=== PATIENT | male | born 1960 ===

== ENCOUNTER 2017-12-16 08:56 | Inpatient (IN) | payer BC ==
[2017-12-16 08:56] VITALS: BMI 25.7
[2017-12-16 10:31] LABS: BASO % 0.5 % (0.0-2.0); EOS # 0.1 K/uL (0.0-0.7); EOS % 0.7 % (0.0-4.0); HEMOGLOBIN 10.7 g/dL (12.0-18.0); LYMPH % 11.1 % (20.0-40.0); MEAN CELL VOLUME 77.5 fL (80.0-94.0); MEAN CORPUSCULAR HEMOGLOBIN 25.7 pg (27.0-31.0); MEAN CORPUSCULAR HGB CONC 33.2 g/dL (33.0-37.0); MONO # 0.6 K/uL (0.0-0.8); MONO % 7.1 % (0.0-10.0); NEUT # 6.9 K/uL (1.8-7.0); NEUT % 80.6 % (50.0-75.0); RBC 4.16 Mil/uL (4.40-5.90); RED CELL DISTRIBUTION WIDTH 13.6 % (11.5-14.5); WHITE BLOOD COUNT 8.6 K/uL (4.8-10.8)
[2017-12-16 10:49] LABS: INR 1.2
[2017-12-16 11:04] LABS: ALB/GLOB RATIO 0.9 (1.0-2.1); ALBUMIN 3.6 g/dL (3.5-5.0); CALCIUM 9.2 mg/dl (8.6-10.4)
--- NOTE | 2017-12-16 12:09 | CP.PCM.CON ---
History of Present Illness - History of Present Illness History of Present Illness: Podiatry consult note for attending Dr. Johnson 57 y/o male with PMHX of Diabetes Type II, Hypertension, and Charcot arthropathy presents to the ED for ulceration to right great toe. Patient states he saw Dr. Johnson on Monday12/18/17. Patient was asked to come to the ED at that time. Patient reports he could not come until today due to work obligations. Patient states he visits Dr. Johnson at her office every 2 months. Patient complains of minimal pain to the area. Patient reports history of Patient states he does not keep the wound dressed. Patient ambulated in a regular shoe. Patient reports the ulcer has been present for many months however unable to obtain appropriate time frame as patient poor historian. Patient has history of diabetic Charcot arthropathy to the left foot, however patient denies any compaints to that foot at this time. Patient denies F/N/V/SOB /posterior calf pain PMHx: Diabetes Type II Social Hx: patient denies ETOH, or tobacco use Allergies: NKDA Review of Systems - Review of Systems All systems: reviewed and no additional remarkable complaints except Review of Systems: As per HPI Past Patient History - Infectious Disease Hx of Infectious Diseases: None - Tetanus Immunizations Tetanus Immunization: Unknown - Past Medical History & Family History Past Medical History?: Yes - Past Social History Smoking Status: Never Smoked - CARDIAC Hx Cardiac Disorders: No - PULMONARY Hx Respiratory Disorders: No - NEUROLOGICAL Hx Neurological Disorder: Yes Other/Comment: NUMBENESS FEET - HEENT Hx HEENT Problems: No - RENAL Hx Chronic Kidney Disease: No - ENDOCRINE/METABOLIC Hx Diabetes Mellitus Type 2: Yes - HEMATOLOGICAL/ONCOLOGICAL Hx Blood Disorders: No - INTEGUMENTARY Hx Dermatological Problems: No - MUSCULOSKELETAL/RHEUMATOLOGICAL Hx Musculoskeletal Disorders: No - GASTROINTESTINAL Hx Gastrointestinal Disorders: No - GENITOURINARY/GYNECOLOGICAL Hx Genitourinary Disorders: No - PSYCHIATRIC Hx Psychophysiologic Disorder: No Hx Substance Use: No - SURGICAL HISTORY Hx Surgeries: Yes Hx Amputation: Yes Other/Comment: SX FOR FLUID IN LUNG 1999 IN [facility] - ANESTHESIA Hx Anesthesia: Yes Hx Anesthesia Reactions: No Hx Malignant Hyperthermia: No Meds Allergies/Adverse Reactions: Allergies Allergy/AdvReac Type Severity Reaction Status Date / Time No Known Allergies Allergy Verified 12/16/17 09:09 Physical Exam - Constitutional Appears: Well, Non-toxic, No Acute Distress - Head Exam Head Exam: ATRAUMATIC, NORMOCEPHALIC - Extremities Exam Additional comments: Right Lower Extremity Exam VASC: DP and PT 2/4, TG warm to warm, with increased warmth at the right hallux , CFT less than 3 seconds to all digit on right X 4, unable to assess to the right hallux, non-pitting edema noted to the right hallux from the level of the MTPJ NEURO: epicritic and protective sensation diminished DERM: 3.3 cm X 3.1 cm X 1 cm ulceration at the tip of the right hallux, positive minimal sero-sanguinous drainage, positive for probe to bone, positive malodor, positive undermining, positive tracking dorsally, periwound granular rim with hyperkeratotic skin noted, positive maceration that extends dorso- medially, hallucal nail bed dystrophic due to ulceration MSK: minimal pain on palpation to the right hallux, MSK 5/5 on DFs/PFs/everters/ inverters, no pain with ankle range of motion - Neurological Exam Neurological exam: Alert, Oriented x3 - Psychiatric Exam Psychiatric exam: Normal Affect, Normal Mood Results - Vital Signs Recent Vital Signs: Last Vital Signs Temp 97.7 F 12/16/17 10:00 Pulse 98 H 12/16/17 09:08 Resp 20 12/16/17 09:08 BP 163/86 H 12/16/17 09:08 Pulse Ox 100 12/16/17 09:08 - Labs Result Diagrams: 12/16/17 10:17 12/16/17 10:17 Labs: Laboratory Results - last 24 hr 12/16/17 12/16/17 12/16/17 10:17 10:17 10:17 WBC 8.6 RBC 4.16 L Hgb 10.7 L Hct 32.2 L MCV 77.5 L MCH 25.7 L MCHC 33.2 RDW 13.6 Plt Count 417 H MPV 8.0 Neut % (Auto) 80.6 H Lymph % (Auto) 11.1 L Barren % (Auto) 7.1 Eos % (Auto) 0.7 Baso % (Auto) 0.5 Neut # (Auto) 6.9 Lymph # (Auto) 1.0 Barren # (Auto) 0.6 Eos # (Auto) 0.1 Baso # (Auto) 0.0 PT 13.0 H INR 1.2 APTT 38 H Sodium 138 Potassium 5.0 Chloride 100 Carbon Dioxide 25 Anion Gap 17 BUN 33 H Creatinine 1.7 H Est GFR ( Amer) 51 Est GFR (Non-Af Amer) 42 Random Glucose 445 H* Calcium 9.2 Total Bilirubin 0.4 AST 15 L ALT 23 Alkaline Phosphatase 132 H Total Protein 7.5 Albumin 3.6 Globulin 3.9 Albumin/Globulin Ratio 0.9 L Assessment & Plan - Assessment and Plan (Free Text) Assessment: 57 y/o male with PMHX of Diabetes Type II, Hypertension, and Charcot arthropathy presents to the ED for ulceration to right great toe Plan: Patient seen and evaluated in the ED Plan discussed with attending Dr. Johnson Chart, labs and vitals reviewed- WBC 8.6, afebrile Wound Culture Ordered- Pending ESR (12/16/17)- 128 mm/hr CRP (12/16/17)- 135 mg/L Right Foot X-ray- Pending official read, soft tissue deficit noted at the right hallux with osteolytics changes to right distal phalanx, cortical lysis Patient wound flushed with saline and dressed with betadine soaked gauze, and Kerlix Patient will be admitted for possible amputation of the right hallux Patient agreeable to admission MRI will be ordered for patient once on floor Thank you for the Podiatry consult - Date & Time Date: 12/16/17 Time: 15:04
--- NOTE | 2017-12-16 12:24 | C.PDOC ---
History Of Present Illness 57 year old male, with past medical history of diabetes, and HTN, is sent to ED by Dr. Johnson for evaluation ulcer to right hallux. Notes he visits Dr. Johnson' s office every 2 months. He states the ulcer has been there for 2 years. He complains of pain to right great toe. Otherwise, denies fever, chest pain, shortness of breath, weakness, numbness, calf pain, or any other associated symptoms at this time. Time Seen by Provider: 12/16/17 09:18 Chief Complaint (Nursing): Lower Extremity Problem/Injury History Per: Patient History/Exam Limitations: no limitations Onset/Duration Of Symptoms: Days Current Symptoms Are (Timing): Still Present Recent travel outside of the [place]: No Additional History Per: Patient, Family Past Medical History Reviewed: Historical Data, Nursing Documentation, Vital Signs Vital Signs: Last Vital Signs Temp 97.7 F 12/16/17 10:00 Pulse 98 H 12/16/17 12:39 Resp 18 12/16/17 12:39 BP 150/79 12/16/17 12:39 Pulse Ox 100 12/16/17 12:57 - Medical History PMH: Diabetes Denies: Chronic Kidney Disease - [facility] Procedures FUSION OF LEFT TARSAL JOINT WITH INT FIX, OPEN APPROACH (04/11/16) INTRODUCE ANTI-INFLAM IN PERIP NRV, PLEXI, PERC (04/11/16) INTRODUCE LOCAL ANESTH IN [facility] NRV, PLEXI, PERC (04/11/16) Family History: States: Diabetes - Social History Hx Alcohol Use: No Hx Substance Use: No - Immunization History Hx Tetanus Toxoid Vaccination: No Hx Influenza Vaccination: No Hx Pneumococcal Vaccination: No Review Of Systems Except As Marked, All Systems Reviewed And Found Negative. Constitutional: Negative for: Fever, Chills Cardiovascular: Negative for: Chest Pain, Palpitations Respiratory: Negative for: Cough, Shortness of Breath Gastrointestinal: Negative for: Nausea, Vomiting, Abdominal Pain Musculoskeletal: Positive for: Foot Pain (right great toe) Neurological: Negative for: Weakness, Numbness Physical Exam - Physical Exam Appears: Non-toxic, No Acute Distress Skin: Warm, Dry Head: Atraumatic, Normacephalic Eye(s): bilateral: Normal Inspection Oral Mucosa: Moist Neck: Normal ROM, Supple Cardiovascular: Rhythm Regular Respiratory: Normal Breath Sounds, No Rales, No Rhonchi, No Wheezing Gastrointestinal/Abdominal: Soft, No Tenderness Extremity: Normal ROM, No Calf Tenderness, Capillary Refill (less than 2 seconds ), Other (macerated ulcer to right great toe with foul smell and discharge) Pulses: Left Dorsalis Pedis: Normal, Right Dorsalis Pedis: Normal Neurological/Psych: Oriented x3, Normal Speech ED Course And Treatment - Laboratory Results Result Diagrams: 12/16/17 10:17 12/16/17 10:17 O2 Sat by Pulse Oximetry: 100 Medical Decision Making Medical Decision Making: Plan: Blood work CXR EKG Right great toe x-ray Pt was evaluated by podiatry resident at bedside. Pt will be admitted under Dr. Berger's service. Disposition Discussed With .: Williams Berger Counseled Patient/Family Regarding: Studies Performed, Diagnosis - Disposition Disposition: HOSPITALIZED Disposition Time: 13:04 Condition: GUARDED Forms: [facility] (Setswana) - Clinical Impression Clinical Impression: Foot ulcer due to secondary DM, Hyperglycemia - Scribe Statement The provider has reviewed the documentation as recorded by the Scribe KP All medical record entries made by the Scribe were at my direction and personally dictated by me. I have reviewed the chart and agree that the record accurately reflects my personal performance of the history, physical exam, medical decision making, and the department course for this patient. I have also personally directed, reviewed, and agree with the discharge instructions and disposition. Decision To Admit - Pt Status Changed To: Hospital Disposition Of: Inpatient - Admit Certification Admit to Inpatient:: After my assessment, the patient will require hospitalization for at least two midnights. This is because of the severity of symptoms shown, intensity of services needed, and/or the medical risk in this patient being treated as an outpatient. - InPatient: Physician Admission Certification: I certify that this patient requires 2 or more midnights of care for the following reason:: patient with uncontroled diabetes, pending surgery for foot ulcer - . Bed Request Type: Regular Patient Diagnosis: Foot ulcer due to secondary DM, Hyperglycemia
[2017-12-16] MEDS ORDERED: (Novolin R) Insulin Human Regular 100 units/ml vial IV ONE (12:28)
[2017-12-16] MEDS ORDERED: (Novolin R) Insulin Human Regular 100 units/ml vial ONE (12:39)
[2017-12-16] MEDS ORDERED: Sodium Chloride 0.9% 1,000 ML IV SCH (13:45)
[2017-12-16] MEDS: Piperacill/Tazo 3.375gm in Dex 3.375 GM/50 ML BAG IVPB SCH ×2 (14:30→20:24)
[2017-12-16] MEDS: Vancomycin 1 gm/NS 200 ml 1 GM/200 ML BAG IVPB SCH (15:03)
[2017-12-16] MEDS: (Novolin R) Insulin Human Regular 100 units/ml vial SC SCH ×2 (16:23→21:21)
--- NOTE | 2017-12-16 21:26 | RAD ---
Date of service: 12/16/2017 HISTORY: Sepsis Patient COMPARISON: No prior. FINDINGS: LUNGS: No active pulmonary disease. PLEURA: No significant pleural effusion identified, no pneumothorax apparent. CARDIOVASCULAR: Normal. OSSEOUS STRUCTURES: No significant abnormalities. VISUALIZED UPPER ABDOMEN: Normal. OTHER FINDINGS: None. IMPRESSION: No active disease.
--- NOTE | 2017-12-16 21:29 | RAD ---
PROCEDURE: Radiographs of the right great toe. TECHNIQUE:: AP radiograph of the right foot, with oblique and lateral view of the right great toe. COMPARISON: None. FINDINGS: BONES: There is suspicious for small erosion at the tip of the distal phalanx of the big toe may represent osteomyelitis. JOINTS: Diffuse arthritic degenerative changes SOFT TISSUES: Heterogeneous density in the distal portion of the big toe without definite evidence of soft tissue pneumatosis. OTHER FINDINGS: Patient status post prior amputation of the distal phalanx of the 2nd toe IMPRESSION: Suspicious for osteomyelitis at the tip of the 1st digit.
[2017-12-17] MEDS: Vancomycin 1 gm/NS 200 ml 1 GM/200 ML BAG IVPB SCH ×2 (01:30→13:43)
[2017-12-17] MEDS: Piperacill/Tazo 3.375gm in Dex 3.375 GM/50 ML BAG IVPB SCH ×4 (03:00→20:15)
[2017-12-17] MEDS: (Novolin R) Insulin Human Regular 100 units/ml vial SC SCH ×4 (07:30→23:55)
[2017-12-17] MEDS: Enoxaparin 40 mg Syringe SC SCH (09:13)
--- NOTE | 2017-12-17 15:33 | CP.PCM.PN ---
Subjective - Date & Time of Evaluation Date of Evaluation: 12/17/17 Time of Evaluation: 15:31 - Subjective Subjective: Podiatry consult note for attending Dr. Johnson 57 y/o male seen at bedside for ulceration to right great toe. Patient is seen resting comfortably; AAOx3. Patient denies acute overnight events. Right foot dressing is seen at bedside; patient states it came off yesterday. Patient denies F/N/V/SOB/posterior calf pain Objective - Vital Signs/Intake and Output Vital Signs (last 24 hours): Temp Pulse Resp BP Pulse Ox 98.5 F 84 20 173/85 H 97 12/17/17 08:00 12/17/17 08:00 12/17/17 08:00 12/17/17 08:00 12/17/17 08:00 Intake and Output: 12/17/17 12/17/17 06:59 18:59 Intake Total 650 Balance 650 - Medications Medications: Current Medications Enoxaparin Sodium (Lovenox) 40 mg SC DAILY [facility] Last Admin: 12/17/17 09:13 Dose: 40 mg Piperacillin Sod/Tazobactam Sod (Zosyn 3.375 Gm Iv Premix) 3.375 gm in 50 mls @ 100 mls/hr IVPB Q6H [facility] PRN Reason: Protocol Last Admin: 12/17/17 14:03 Dose: 100 mls/hr Vancomycin/Sodium Chloride (Vancomycin 1 Gm/Ns 200 Ml) 1 gm in 200 mls @ 133.333 mls/hr IVPB Q12H [facility] PRN Reason: Protocol Stop: 12/21/17 14:01 Last Admin: 12/17/17 13:43 Dose: 133.333 mls/hr Insulin Human Regular (Novolin R) 0 unit SC ACHS [facility] PRN Reason: Protocol Last Admin: 12/17/17 11:30 Dose: 4 units Lisinopril (Zestril) 10 mg PO DAILY [facility] Last Admin: 12/17/17 10:00 Dose: 10 mg Metformin HCl (Glucophage) 500 mg PO BID [facility] Last Admin: 12/17/17 09:12 Dose: 500 mg Pneumococcal Polyvalent Vaccine (Pneumovax 23 Vaccine) 0.5 ml IM .ONCE ONE Stop: 12/18/17 10:01 Rosuvastatin Calcium (Crestor) 10 mg PO HS [facility] Last Admin: 12/16/17 21:25 Dose: 10 mg - Labs Labs: 12/16/17 10:17 12/16/17 10:17 PT 13.0 SECONDS (9.7-12.2) H 12/16/17 10:17 INR 1.2 12/16/17 10:17 APTT 38 SECONDS (21-34) H 12/16/17 10:17 - Constitutional Appears: Well, Non-toxic, No Acute Distress - Head Exam Head Exam: ATRAUMATIC, NORMOCEPHALIC - Extremities Exam Additional comments: Right Lower Extremity Exam VASC: DP and PT 2/4, TG warm to warm, with increased warmth at the right hallux , CFT less than 3 seconds to all digit on right X 4, unable to assess to the right hallux, non-pitting edema noted to the right hallux from the level of the MTPJ NEURO: epicritic and protective sensation diminished DERM: 3.3 cm X 3.1 cm X 1 cm ulceration at the tip of the right hallux, positive minimal sero-sanguinous drainage, positive for probe to bone, positive malodor, positive undermining, positive tracking dorsally, periwound granular rim with hyperkeratotic skin noted, positive maceration that extends dorso- medially, hallucal nail bed dystrophic due to ulceration MSK: minimal pain on palpation to the right hallux, MSK 5/5 on DFs/PFs/everters/ inverters, no pain with ankle range of motion - Neurological Exam Neurological Exam: Alert, Awake, Oriented x3 - Psychiatric Exam Psychiatric exam: Normal Affect, Normal Mood - Skin Skin Exam: Normal Color Assessment and Plan - Assessment and Plan (Free Text) Assessment: 57 y/o male seen at bedside for ulceration to right great toe; possible osteomyelitis Plan: Patient seen and evaluated in the ED Plan discussed with attending Dr. Johnson Chart, labs and vitals reviewed- WBC 8.6, afebrile Wound Culture Ordered- Pending ESR (12/16/17)- 128 mm/hr CRP (12/16/17)- 135 mg/L Right Foot X-ray- possible osteomyelitis of the tip of the hallux Right foot MRI Stat ordered Podiatry plan: possible right hallux amputation Thank you for the Podiatry consult
--- NOTE | 2017-12-17 21:06 | CP.PCM.HP ---
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 Patient states he saw Dr. Johnson on Monday12/18/17. Patient was asked to come to the ED at that time. Patient reports he could not come until today due to work obligations. Patient states he visits Dr. Johnson at her office every 2 months. Patient complains of minimal pain to the area. Patient reports history of Patient states he does not keep the wound dressed. Patient ambulated in a regular shoe. Patient reports the ulcer has been present for many months, incresing discharge and erythmea however unable to obtain appropriate time frame as patient poor historian. Patient has history of diabetic Charcot arthropathy to the left foot, however patient denies any compaints to that foot at this time. Patient denies F/N/V/SOB/posterior calf pain PMHx: Diabetes Type II Social Hx: patient denies ETOH, or tobacco use Allergies: NKDA Present on Admission - Present on Admission Any Indicators Present on Admission: Yes Review of Systems - Review of Systems Systems not reviewed;Unavailable: Acuity of Condition - Constitutional Constitutional: Fatigue, Lethargy - EENT Eyes: absent: As Per HPI, Blind Spots, Blurred Vision, Change in Vision, Decreased Night Vision, Diplopia, Discharge, Dry Eye, Exophthalmos, Floaters, Irritation, Itchy Eyes, Loss of Peripheral Vision, Pain, Photophobia, Requires Corrective Lenses, Sees Flashes, Spots in Vision, Tunnel Vision, Other Visual Disturbances, Loss of Vision, Other Ears: absent: As Per HPI, Decreased Hearing, Ear Discharge, Ear Pain, Tinnitus, Abnormal Hearing, Disequilibrium, Dizziness, Other Nose/Mouth/Throat: absent: As Per HPI, Epistaxis, Nasal Congestion, Nasal Discharge, Nasal Obstruction, Nasal Trauma, Nose Pain, Post Nasal Drip, Sinus Pain, Sinus Pressure, Bleeding Gums, Change in Voice, Dental Pain, Dry Mouth, Dysphagia, Halitosis, Hoarsness, Lip Swelling, Mouth Lesions, Mouth Pain, Odynophagia, Sore Throat, Throat Swelling, Tongue Swelling, Facial Pain, Neck Pain, Neck Mass, Other - Cardiovascular Cardiovascular: absent: As Per HPI, Acrocyanosis, Chest Pain, Chest Pain at Rest , Chest Pain with Activity, Claudication, Diaphoresis, Dyspnea, Dyspnea on Exertion, Edema, Irregular Heart Rhythm, Pain Radiating to Arm/Neck/Jaw, Leg Edema, Leg Ulcers, Lightheadedness, Orthopnea, Palpitations, Paroxysmal Nocturnal Dyspnea, Pedal Edema, Radiating Pain, Rapid Heart Rate, Slow Heart Rate, Syncope, Other - Respiratory Respiratory: absent: As Per HPI, Cough, Dyspnea, Hemoptysis, Dyspnea on Exertion , Wheezing, Snoring, Stridor, Pain on Inspiration, Chest Congestion, Excessive Mucous Production, Change in Mucous Color, Pain with Coughing, Other - Gastrointestinal Gastrointestinal: absent: As Per HPI, Abdominal Pain, Belching, Bloating, Change in Bowel Habits, Change in Stool Character, Coffee Ground Emesis, Constipation, Cramping, Diarrhea, Dyspepsia, Dysphagia, Early Satiety, Excessive Flatus, Fecal Incontinence, Heartburn, Hematemesis, Hematochezia, Loose Stools, Melena, Nausea, Odynophagia, Temesmus, Vomiting, Other - Genitourinary Genitourinary: absent: As Per HPI, Change in Urinary Stream, Difficulty Urinating, Dysuria, Flank Pain, Hematuria, Pyuria, Nocturia, Urinary Incontinence, Urinary Frequency, Urinary Hesitance, Urinary Urgency, Voiding Freq/Small Amts, Freq UTI, Hx Renal/Bladder Calculi, Hx /Renal Surgery, Bladder Distension, Other - Integumentary Integumentary: Non-Healing Lesions, Skin Pain, Skin Ulcer, Wounds - Neurological Neurological: absent: As Per HPI, Abnormal Gait, Abnormal Hearing, Abnormal Movements, Abnormal Speech, Behavioral Changes, Burning Sensations, Confusion, Convulsions, Disequilibrium, Dizziness, Numbness, Focal Weakness, Frequent Falls , Headaches, Lack of Coordination, Loss of Vision, Memory Loss, Paresthesias, Radicular Pain, Restless Legs, Sensory Deficit, Syncope, Tingling, Tremor, Vertigo, Weakness, Other Visual Disturbances, Other - Psychiatric Psychiatric: absent: As Per HPI, Abnormal Sleep Pattern, Anhedonia, Anxiety, Auditory Hallucinations, Behavioral Changes, Change in Appetite, Change in Libido, Confusion, Depression, Difficulty Concentrating, Hallucinations, Homicidal Ideation, Hopelessness, Irritability, Memory Loss, Mood Swings, Panic Attacks, Paranoia, Suicidal Ideation, Visual Hallucinations, Tactile Hallucinations, Other Past Patient History - Infectious Disease Hx of Infectious Diseases: None - Tetanus Immunizations Tetanus Immunization: Unknown - Past Medical History & Family History Past Medical History?: Yes - Past Social History Smoking Status: Never Smoked - CARDIAC Hx Cardiac Disorders: No - PULMONARY Hx Respiratory Disorders: No - NEUROLOGICAL Hx Neurological Disorder: Yes Other/Comment: NUMBENESS FEET - HEENT Hx HEENT Problems: No - RENAL Hx Chronic Kidney Disease: No - ENDOCRINE/METABOLIC Hx Diabetes Mellitus Type 2: Yes - HEMATOLOGICAL/ONCOLOGICAL Hx Blood Disorders: No - INTEGUMENTARY Hx Dermatological Problems: No - MUSCULOSKELETAL/RHEUMATOLOGICAL Hx Musculoskeletal Disorders: No Hx Falls: Yes - GASTROINTESTINAL Hx Gastrointestinal Disorders: No - GENITOURINARY/GYNECOLOGICAL Hx Genitourinary Disorders: No - PSYCHIATRIC Hx Psychophysiologic Disorder: No Hx Substance Use: No - SURGICAL HISTORY Hx Surgeries: Yes Hx Amputation: Yes Other/Comment: SX FOR FLUID IN LUNG 1999 IN [facility] - ANESTHESIA Hx Anesthesia: Yes Hx Anesthesia Reactions: No Hx Malignant Hyperthermia: No Meds Allergies/Adverse Reactions: Allergies Allergy/AdvReac Type Severity Reaction Status Date / Time No Known Allergies Allergy Verified 12/16/17 09:09 Physical Exam - Constitutional Appears: No Acute Distress - Eye Exam Eye Exam: EOMI, Normal appearance, PERRL Pupil Exam: NORMAL ACCOMODATION, PERRL - ENT Exam ENT Exam: Mucous Membranes Moist, Normal Exam - Neck Exam Neck exam: Positive for: Normal Inspection - Respiratory Exam Respiratory Exam: Clear to Auscultation Bilateral, NORMAL BREATHING PATTERN - Cardiovascular Exam Cardiovascular Exam: REGULAR RHYTHM - GI/Abdominal Exam GI & Abdominal Exam: Normal Bowel Sounds, Soft. absent: Tenderness - Extremities Exam Additional comments: Right Lower Extremity Exam VASC: DP and PT 2/4, TG warm to warm, with increased warmth at the right hallux , CFT less than 3 seconds to all digit on right X 4, unable to assess to the right hallux, non-pitting edema noted to the right hallux from the level of the MTPJ NEURO: epicritic and protective sensation diminished DERM: 3.3 cm X 3.1 cm X 1 cm ulceration at the tip of the right hallux, positive minimal sero-sanguinous drainage, positive for probe to bone, positive malodor, positive undermining, positive tracking dorsally, periwound granular rim with hyperkeratotic skin noted, positive maceration that extends dorso- medially, hallucal nail bed dystrophic due to ulceration MSK: minimal pain on palpation to the right hallux, MSK 5/5 on DFs/PFs/everters/ inverters, no pain with ankle range of motion Results - Vital Signs Recent Vital Signs: Last Vital Signs Temp 98.0 F 12/17/17 15:00 Pulse 88 12/17/17 15:00 Resp 20 12/17/17 15:00 BP 148/88 12/17/17 15:00 Pulse Ox 100 12/17/17 15:00 - Labs Result Diagrams: 12/16/17 10:17 12/16/17 10:17 Assessment & Plan (1) Foot ulcer due to secondary DM Status: Acute (2) Hyperglycemia Status: Acute (3) Edema of foot Status: Acute (4) Hypertension Status: Acute (5) Charcot's arthropathy associated with type 2 diabetes mellitus Status: Chronic (6) Diabetes mellitus type 2 in nonobese Status: Chronic
--- NOTE | 2017-12-17 21:12 | CP.PCM.PN ---
Subjective - Date & Time of Evaluation Date of Evaluation: 12/17/17 Time of Evaluation: 20:40 - Subjective Subjective: Pt seen and examined at bedside, feeling better Objective - Vital Signs/Intake and Output Vital Signs (last 24 hours): Temp Pulse Resp BP Pulse Ox 98.0 F 88 20 148/88 100 12/17/17 15:00 12/17/17 15:00 12/17/17 15:00 12/17/17 15:00 12/17/17 15:00 - Medications Medications: Current Medications Enoxaparin Sodium (Lovenox) 40 mg SC DAILY [facility] Last Admin: 12/17/17 09:13 Dose: 40 mg Piperacillin Sod/Tazobactam Sod (Zosyn 3.375 Gm Iv Premix) 3.375 gm in 50 mls @ 100 mls/hr IVPB Q6H [facility] PRN Reason: Protocol Last Admin: 12/17/17 20:15 Dose: 100 mls/hr Vancomycin/Sodium Chloride (Vancomycin 1 Gm/Ns 200 Ml) 1 gm in 200 mls @ 133.333 mls/hr IVPB Q12H [facility] PRN Reason: Protocol Stop: 12/21/17 14:01 Last Admin: 12/17/17 13:43 Dose: 133.333 mls/hr Insulin Human Regular (Novolin R) 0 unit SC ACHS [facility] PRN Reason: Protocol Last Admin: 12/17/17 17:21 Dose: 1 units Lisinopril (Zestril) 10 mg PO DAILY [facility] Last Admin: 12/17/17 10:00 Dose: 10 mg Metformin HCl (Glucophage) 500 mg PO BID [facility] Last Admin: 12/17/17 17:18 Dose: 500 mg Pneumococcal Polyvalent Vaccine (Pneumovax 23 Vaccine) 0.5 ml IM .ONCE ONE Stop: 12/18/17 10:01 Rosuvastatin Calcium (Crestor) 10 mg PO HS [facility] Last Admin: 12/16/17 21:25 Dose: 10 mg - Labs Labs: 12/16/17 10:17 12/16/17 10:17 PT 13.0 SECONDS (9.7-12.2) H 12/16/17 10:17 INR 1.2 12/16/17 10:17 APTT 38 SECONDS (21-34) H 12/16/17 10:17 - Constitutional Appears: Well - Head Exam Head Exam: ATRAUMATIC, NORMAL INSPECTION, NORMOCEPHALIC - Eye Exam Eye Exam: EOMI, Normal appearance, PERRL Pupil Exam: NORMAL ACCOMODATION, PERRL - ENT Exam ENT Exam: Mucous Membranes Moist, Normal Exam - Respiratory Exam Respiratory Exam: Clear to Ausculation Bilateral, NORMAL BREATHING PATTERN - Cardiovascular Exam Cardiovascular Exam: REGULAR RHYTHM, +S1, +S2. absent: Murmur - GI/Abdominal Exam GI & Abdominal Exam: Soft, Normal Bowel Sounds. absent: Tenderness - Rectal Exam Rectal Exam: Deferred - Extremities Exam Additional comments: Right Lower Extremity Exam VASC: DP and PT 2/4, TG warm to warm, with increased warmth at the right hallux , CFT less than 3 seconds to all digit on right X 4, unable to assess to the right hallux, non-pitting edema noted to the right hallux from the level of the MTPJ NEURO: epicritic and protective sensation diminished DERM: 3.3 cm X 3.1 cm X 1 cm ulceration at the tip of the right hallux, positive minimal sero-sanguinous drainage, positive for probe to bone, positive malodor, positive undermining, positive tracking dorsally, periwound granular rim with hyperkeratotic skin noted, positive maceration that extends dorso- medially, hallucal nail bed dystrophic due to ulceration MSK: minimal pain on palpation to the right hallux, MSK 5/5 on DFs/PFs/everters/ inverters, no pain with ankle range of motion - Neurological Exam Neurological Exam: Alert, Awake, CN II-XII Intact, Normal Gait, Oriented x3 - Psychiatric Exam Psychiatric exam: Normal Affect, Normal Mood Assessment and Plan (1) Foot ulcer due to secondary DM Status: Acute (2) Hyperglycemia Status: Acute (3) Edema of foot Status: Acute (4) Hypertension Status: Acute (5) Charcot's arthropathy associated with type 2 diabetes mellitus Status: Chronic (6) Diabetes mellitus type 2 in nonobese Status: Chronic
[2017-12-18] MEDS: Vancomycin 1 gm/NS 200 ml 1 GM/200 ML BAG IVPB SCH ×2 (01:22→14:26)
[2017-12-18] MEDS: Piperacill/Tazo 3.375gm in Dex 3.375 GM/50 ML BAG IVPB SCH ×4 (03:10→21:05)
[2017-12-18 08:00] LABS: BASO # 0.1 K/uL (0.0-0.2); BASO % 0.7 % (0.0-2.0); EOS # 0.1 K/uL (0.0-0.7); EOS % 0.7 % (0.0-4.0); HEMOGLOBIN 10.4 g/dL (12.0-18.0); LYMPH # 1.1 K/uL (1.0-4.3); MEAN CELL VOLUME 76.9 fL (80.0-94.0); MEAN CORPUSCULAR HEMOGLOBIN 25.9 pg (27.0-31.0); MEAN CORPUSCULAR HGB CONC 33.7 g/dL (33.0-37.0); MONO # 0.7 K/uL (0.0-0.8); MONO % 7.3 % (0.0-10.0); NEUT # 7.8 K/uL (1.8-7.0); NEUT % 80.3 % (50.0-75.0); RED CELL DISTRIBUTION WIDTH 13.7 % (11.5-14.5); WHITE BLOOD COUNT 9.7 K/uL (4.8-10.8)
[2017-12-18 08:07] LABS: CALCIUM 9.3 mg/dl (8.6-10.4)
[2017-12-18] MEDS: (Novolin R) Insulin Human Regular 100 units/ml vial SC SCH ×4 (08:15→22:00)
[2017-12-18] MEDS: Enoxaparin 40 mg Syringe SC SCH (09:19)
[2017-12-18] MEDS ORDERED: Pneumococcal 23-Valent Vaccine IM ONE (10:00)
[2017-12-18] MEDS ORDERED: Gadodiamide 287 MG/ML VIAL (15ML) IV ONE (11:31)
--- NOTE | 2017-12-18 12:12 | MRI ---
MRI right forefoot History: Hallux valgus. Evaluate for osteomyelitis. Comparison: X-ray dated 12/16/2017 Technique: Multi-echo multiplanar sequences were performed through the right forefoot without and with the use of intravenous contrast. Findings: Soft tissue defect measuring 1.8 centimeters at the level of the 1st distal phalanx. Extensive signal abnormality throughout the 1st distal phalanx with decreased T1 signal and increased STIR signal consistent with an acute osteomyelitis. Minimal reactive edema seen at the head of the 1st proximal phalanx. Severe hallux valgus deformity with fluid at the 1st MTP joint space. In addition, there are prominent large and prominent multilobulated cystic foci seen within the 1st metatarsal head measuring 2.4 x 2.1 x 1.9 centimeters. There is some surrounding mild edema at this level. This may be the sequelae of acute inflammatory and or infectious changes. Additional considerations may sequelae of degenerative change versus large subchondral cysts or ganglia versus additional etiology. Mild reactive edema noted at the head of 1st metatarsal bone. Reticulation and edema within the circumferential subcutaneous soft tissues. Blooming artifact noted at the base of the 4th metatarsal bone. 5 millimeter subchondral cyst formation noted within the medial aspect of the 2nd metatarsal head. Mild increased signal in the Lisfranc ligament may represent a low grade sprain. Mild reactive edema seen in the proximal pole of the medial cuneiform bone as well as in the middle and lateral cuneiform bones and cuboid bone. This is nonspecific and may represent sequelae of acute inflammatory versus infectious changes versus sequelae of degenerative changes versus additional etiology. Clinical correlation. Impression: 1. Soft tissue defect measuring 1.8 centimeters at the level of the 1st distal phalanx. Extensive signal abnormality throughout the 1st distal phalanx with decreased T1 signal and increased STIR signal consistent with an acute osteomyelitis. Minimal reactive edema seen at the head of the 1st proximal phalanx. 2. Severe hallux valgus deformity with fluid at the 1st MTP joint space. In addition, there are prominent large and prominent multilobulated cystic foci seen within the 1st metatarsal head measuring 2.4 x 2.1 x 1.9 centimeters. There is some surrounding mild edema at this level. This may be the sequelae of acute inflammatory and or infectious changes. Additional considerations may sequelae of degenerative change versus large subchondral cysts or ganglia versus additional etiology. Mild reactive edema noted at the head of 1st metatarsal bone. 3. Reticulation and edema within the circumferential subcutaneous soft tissues. 4. Blooming artifact noted at the base of the 4th metatarsal bone. 5. 5 millimeter subchondral cyst formation noted within the medial aspect of the 2nd metatarsal head. 6. Mild increased signal in the Lisfranc ligament may represent a low grade sprain. 7. Mild reactive edema seen in the proximal pole of the medial cuneiform bone as well as in the middle and lateral cuneiform bones and cuboid bone. This is nonspecific and may represent sequelae of acute inflammatory versus infectious changes versus sequelae of degenerative changes versus additional etiology. Clinical correlation.
[2017-12-18 14:07] LABS: CALCIUM 10.3 mg/dl (8.6-10.4)
--- NOTE | 2017-12-18 20:54 | CP.PCM.PN ---
Objective - Vital Signs/Intake and Output Vital Signs (last 24 hours): Temp Pulse Resp BP Pulse Ox 98.8 F 79 20 167/87 H 99 12/18/17 16:17 12/18/17 16:17 12/18/17 16:17 12/18/17 16:17 12/18/17 16:17 Intake and Output: 12/18/17 12/19/17 18:59 06:59 Intake Total 650 Balance 650 - Medications Medications: Current Medications Enoxaparin Sodium (Lovenox) 40 mg SC DAILY [facility] Last Admin: 12/18/17 09:19 Dose: 40 mg Piperacillin Sod/Tazobactam Sod (Zosyn 3.375 Gm Iv Premix) 3.375 gm in 50 mls @ 100 mls/hr IVPB Q6H [facility] PRN Reason: Protocol Last Admin: 12/18/17 14:00 Dose: 100 mls/hr Vancomycin/Sodium Chloride (Vancomycin 1 Gm/Ns 200 Ml) 1 gm in 200 mls @ 133.333 mls/hr IVPB Q12H [facility] PRN Reason: Protocol Stop: 12/21/17 14:01 Last Admin: 12/18/17 14:26 Dose: 133.333 mls/hr Insulin Human Regular (Novolin R) 0 unit SC ACHS [facility] PRN Reason: Protocol Last Admin: 12/18/17 17:29 Dose: Not Given Lisinopril (Zestril) 10 mg PO DAILY [facility] Last Admin: 12/18/17 09:20 Dose: 10 mg Metformin HCl (Glucophage) 500 mg PO BID [facility] Last Admin: 12/18/17 17:29 Dose: 500 mg Rosuvastatin Calcium (Crestor) 10 mg PO [facility] Last Admin: 12/17/17 21:30 Dose: 10 mg - Labs Labs: 12/18/17 07:18 12/18/17 13:37 PT 13.0 SECONDS (9.7-12.2) H 12/16/17 10:17 INR 1.2 12/16/17 10:17 APTT 38 SECONDS (21-34) H 12/16/17 10:17 Assessment and Plan (1) Foot ulcer due to secondary DM Status: Acute (2) Hyperglycemia Status: Acute (3) Edema of foot Status: Acute (4) Hypertension Status: Acute (5) Charcot's arthropathy associated with type 2 diabetes mellitus Status: Chronic (6) Diabetes mellitus type 2 in nonobese Status: Chronic
--- NOTE | 2017-12-18 22:35 | CP.PCM.PN ---
Subjective - Date & Time of Evaluation Date of Evaluation: 12/18/17 Time of Evaluation: 07:40 - Subjective Subjective: Podiatry Progress Note- Dr. Johnson 57M seen and evaluated for right hallux ulceration. Patient is seen resting comfortably in bed, in NAD and AA0x3. Patient reports that he slept well. Denies acute overnight events. Denies nausea, fever, shortness of breath, chest pains or chills. Objective - Vital Signs/Intake and Output Vital Signs (last 24 hours): Temp Pulse Resp BP Pulse Ox 98.8 F 79 20 167/87 H 99 12/18/17 16:17 12/18/17 16:17 12/18/17 16:17 12/18/17 16:17 12/18/17 16:17 Intake and Output: 12/18/17 12/19/17 18:59 06:59 Intake Total 650 400 Output Total 600 Balance 650 -200 - Medications Medications: Current Medications Enoxaparin Sodium (Lovenox) 40 mg SC DAILY [facility] Last Admin: 12/18/17 09:19 Dose: 40 mg Piperacillin Sod/Tazobactam Sod (Zosyn 3.375 Gm Iv Premix) 3.375 gm in 50 mls @ 100 mls/hr IVPB Q6H [facility] PRN Reason: Protocol Last Admin: 12/18/17 21:05 Dose: 100 mls/hr Vancomycin/Sodium Chloride (Vancomycin 1 Gm/Ns 200 Ml) 1 gm in 200 mls @ 133.333 mls/hr IVPB Q12H [facility] PRN Reason: Protocol Stop: 12/21/17 14:01 Last Admin: 12/18/17 14:26 Dose: 133.333 mls/hr Insulin Human Regular (Novolin R) 0 unit SC ACHS [facility] PRN Reason: Protocol Last Admin: 12/18/17 17:29 Dose: Not Given Lisinopril (Zestril) 20 mg PO DAILY [facility] Metformin HCl (Glucophage) 500 mg PO BID [facility] Last Admin: 12/18/17 17:29 Dose: 500 mg Rosuvastatin Calcium (Crestor) 10 mg PO HS [facility] Last Admin: 12/18/17 21:05 Dose: 10 mg - Labs Labs: 12/18/17 07:18 12/18/17 13:37 PT 13.0 SECONDS (9.7-12.2) H 12/16/17 10:17 INR 1.2 12/16/17 10:17 APTT 38 SECONDS (21-34) H 12/16/17 10:17 - Constitutional Appears: Well, Non-toxic, No Acute Distress - Extremities Exam Extremities Exam: absent: Calf Tenderness Additional comments: Right Lower Extremity Exam VASC: DP and PT 2/4, TG warm to warm, with increased warmth at the right hallux , CFT less than 3 seconds to all digit on right X 4, unable to assess to the right hallux, non-pitting edema noted to the right hallux from the level of the MTPJ NEURO: epicritic and protective sensation diminished DERM: 3.3 cm X 3.1 cm X 1 cm ulceration at the tip of the right hallux, positive minimal sero-sanguinous drainage, positive for probe to bone, positive malodor, positive undermining, positive tracking dorsally, periwound granular rim with hyperkeratotic skin noted, positive maceration that extends dorso- medially, hallucal nail bed dystrophic due to ulceration MSK: minimal pain on palpation to the right hallux, MSK 5/5 on DFs/PFs/everters/ inverters, no pain with ankle range of motion - Psychiatric Exam Psychiatric exam: Normal Affect, Normal Mood Assessment and Plan - Assessment and Plan (Free Text) Assessment: 57 y/o male seen at bedside for ulceration to right great toe; possible osteomyelitis Plan: Patient seen and evaluated Plan discussed with attending Dr. Johnson Chart, labs and vitals reviewed- WBC 9.7, afebrile Wound Culture right toe- Preliminary gram positive cocci, gram positive cocci #2 C/w abx per ID ESR (12/16/17)- 128 mm/hr, (12/18/17) - 130mm/hr CRP (12/16/17)- 135 mg/L Right Foot X-ray- possible osteomyelitis of the tip of the hallux Spoke to patient about possible hallux amputation pending MRI Patient reports understanding MRI- will be taken in AM Dressed hallux with soaked betadine gauze, dsd, and kerlix Will continue to follow patient while in house
[2017-12-19] MEDS: Vancomycin 1 gm/NS 200 ml 1 GM/200 ML BAG IVPB SCH (01:40)
[2017-12-19] MEDS: Piperacill/Tazo 3.375gm in Dex 3.375 GM/50 ML BAG IVPB SCH ×4 (03:15→21:45)
[2017-12-19] MEDS: (Novolin R) Insulin Human Regular 100 units/ml vial SC SCH ×4 (08:13→21:44)
[2017-12-19 08:32] LABS: CALCIUM 9.3 mg/dl (8.6-10.4)
--- NOTE | 2017-12-19 09:09 | PN ---
Copied To: Williams Berger MD Attending MD: Williams Berger MD DATE: 12/18/2017 SUBJECTIVE: The patient's MRI of the foot is positive for osteomyelitis of the right foot. Patient is on antibiotics. He is afebrile. His blood sugar is down. His electrolytes have been corrected. His creatinine is at 1.6, and vancomycin trough level is high. Dr. Bates has been consulted. Patient will need long-term antibiotics. His wound cultures are positive for Gram-positive Cocci. PHYSICAL EXAMINATION: VITAL SIGNS: Blood pressure 167/87, pulse 79, respiratory rate 20, temperature 98.8. LUNGS: Clear. No rales. No rhonchi. CARDIOVASCULAR: S1, S2 regular. EXTREMITIES: Right foot, on the medial aspect, there is an open ulcer with discharge. ASSESSMENT: 1. Osteomyelitis of right foot. The patient will need antibiotics, wound care. 2. Chronic kidney disease. 3. Type 2 diabetes, poorly controlled. Patient came with very less sugar. 4. Hypertension, poorly controlled. PLAN: ID evaluation, urinalysis, blood pressure control, monitor electrolytes. Williams Berger MD
--- NOTE | 2017-12-19 09:14 | CP.PCM.PN ---
Subjective - Date & Time of Evaluation Date of Evaluation: 12/19/17 Time of Evaluation: 07:00 - Subjective Subjective: Podiatry Progress Note- Dr. Johnson 57M seen and evaluated for right hallux ulceration with (+) OM Patient is seen resting comfortably in bed, in NAD and AA0x3. Denies acute overnight events. Denies of pain to the right lower extremity. Reports has been ambulating. Patient reports understanding that he will go to the operation room tomorrow Monday in the AM for partial hallux amputation of the right secondary to ulceration with (+). Denies nausea, fever, shortness of breath, chest pains or chills. Objective - Vital Signs/Intake and Output Vital Signs (last 24 hours): Temp Pulse Resp BP Pulse Ox 98.7 F 88 20 171/85 H 98 12/19/17 08:33 12/19/17 08:33 12/19/17 08:33 12/19/17 08:33 12/19/17 08:33 Intake and Output: 12/19/17 12/19/17 06:59 18:59 Intake Total 950 Output Total 600 Balance 350 - Medications Medications: Current Medications Enoxaparin Sodium (Lovenox) 40 mg SC DAILY [facility] Last Admin: 12/18/17 09:19 Dose: 40 mg Piperacillin Sod/Tazobactam Sod (Zosyn 3.375 Gm Iv Premix) 3.375 gm in 50 mls @ 100 mls/hr IVPB Q6H [facility] PRN Reason: Protocol Last Admin: 12/19/17 08:14 Dose: 100 mls/hr Vancomycin/Sodium Chloride (Vancomycin 1 Gm/Ns 200 Ml) 1 gm in 200 mls @ 133.333 mls/hr IVPB Q12H [facility] PRN Reason: Protocol Stop: 12/21/17 14:01 Last Admin: 12/19/17 01:40 Dose: 133.333 mls/hr Insulin Human Regular (Novolin R) 0 unit SC ACHS [facility] PRN Reason: Protocol Last Admin: 12/19/17 08:13 Dose: 2 units Lisinopril (Zestril) 20 mg PO DAILY [facility] Metformin HCl (Glucophage) 500 mg PO BID [facility] Last Admin: 12/18/17 17:29 Dose: 500 mg Rosuvastatin Calcium (Crestor) 10 mg PO HS [facility] Last Admin: 12/18/17 21:05 Dose: 10 mg - Labs Labs: 12/18/17 07:18 12/19/17 07:59 PT 13.0 SECONDS (9.7-12.2) H 12/16/17 10:17 INR 1.2 12/16/17 10:17 APTT 38 SECONDS (21-34) H 12/16/17 10:17 - Constitutional Appears: Well, Non-toxic, No Acute Distress - Extremities Exam Extremities Exam: absent: Calf Tenderness Additional comments: Right Lower Extremity Exam VASC: DP and PT 2/4, TG warm to warm, with increased warmth at the right hallux , CFT less than 3 seconds to all digit on right X 4, unable to assess to the right hallux, non-pitting edema noted to the right hallux from the level of the MTPJ NEURO: epicritic and protective sensation diminished DERM: 3.3 cm X 3.1 cm X 1 cm ulceration at the tip of the right hallux, positive minimal sero-sanguinous drainage, positive for probe to bone, positive malodor, positive undermining, positive tracking dorsally, periwound granular rim with hyperkeratotic skin noted, positive maceration that extends dorso- medially, hallucal nail bed dystrophic due to ulceration MSK: minimal pain on palpation to the right hallux, MSK 5/5 on DFs/PFs/everters/ inverters, no pain with ankle range of motion - Neurological Exam Neurological Exam: Alert, Awake, Oriented x3 - Psychiatric Exam Psychiatric exam: Normal Affect, Normal Mood Assessment and Plan - Assessment and Plan (Free Text) Assessment: 57 y/o male seen at bedside for ulceration to right great toe (+) osteomyelitis schedule for OR tomorrow for right partial hallux amputation pending medical clearance Plan: Patient seen and evaluated Plan discussed with attending Dr. Johnson Chart, labs and vitals reviewed- WBC 9.7, afebrile (12/18/17) Wound Culture right toe- Beta Hemolytic Strep Group B C/w abx per ID ESR (12/16/17)- 128 mm/hr, (12/18/17) - 130mm/hr CRP (12/16/17)- 135 mg/L Right Foot X-ray- possible osteomyelitis of the tip of the hallux MRI reviewed- right 1st distal phalanx osteomyelitis and minimal reactive edema seen at head of 1st proximal phalanx Dr. Johnson plans for patient to go to operation room on MONDAY (12/20/17) at noon 12PM for partial amputation of right hallux including all nonviable soft tissue and bone pending medical clearance Please provide medical clearance. Thank you Spoke to patient in detail regarding surgery. Patient understands and is agreeable to surgery. All questions/concerns addressed. Patient to be NPO at midnight, nothing to eat or drink. Thank you Dressed hallux with soaked betadine gauze, dsd, and kerlix Will continue to follow patient while in house
[2017-12-19] MEDS: Enoxaparin 40 mg Syringe SC SCH (10:08)
--- NOTE | 2017-12-19 12:06 | CP.PCM.CON ---
History of Present Illness - History of Present Illness History of Present Illness: 57 y/o ken[place] male with PMHX of Diabetes Type II, Hypertension, hyperlipidemia and Charcot arthropathy presents to the ED for ulceration to right great toe. started on IV rx cultures pending Patient has history of diabetic Charcot arthropathy to the left foot, however patient denies any compaints to that foot at this time. Patient denies F/N/V/SOB /posterior calf pain PMHx: Diabetes Type II Social Hx: patient denies ETOH, or tobacco use Allergies: NKDA Review of Systems - Review of Systems All systems: reviewed and no additional remarkable complaints except - Constitutional Constitutional: As Per HPI - EENT Eyes: absent: As Per HPI, Blind Spots, Blurred Vision, Change in Vision, Decreased Night Vision, Diplopia, Discharge, Dry Eye, Exophthalmos, Floaters, Irritation, Itchy Eyes, Loss of Peripheral Vision, Pain, Photophobia, Requires Corrective Lenses, Sees Flashes, Spots in Vision, Tunnel Vision, Other Visual Disturbances, Loss of Vision, Other Ears: absent: As Per HPI, Decreased Hearing, Ear Discharge, Ear Pain, Tinnitus, Abnormal Hearing, Disequilibrium, Dizziness, Other Nose/Mouth/Throat: absent: As Per HPI, Epistaxis, Nasal Congestion, Nasal Discharge, Nasal Obstruction, Nasal Trauma, Nose Pain, Post Nasal Drip, Sinus Pain, Sinus Pressure, Bleeding Gums, Change in Voice, Dental Pain, Dry Mouth, Dysphagia, Halitosis, Hoarsness, Lip Swelling, Mouth Lesions, Mouth Pain, Odynophagia, Sore Throat, Throat Swelling, Tongue Swelling, Facial Pain, Neck Pain, Neck Mass, Other - Cardiovascular Cardiovascular: absent: As Per HPI, Acrocyanosis, Chest Pain, Chest Pain at Rest , Chest Pain with Activity, Claudication, Diaphoresis, Dyspnea, Dyspnea on Exertion, Edema, Irregular Heart Rhythm, Pain Radiating to Arm/Neck/Jaw, Leg Edema, Leg Ulcers, Lightheadedness, Orthopnea, Palpitations, Paroxysmal Nocturnal Dyspnea, Pedal Edema, Radiating Pain, Rapid Heart Rate, Slow Heart Rate, Syncope, Other - Respiratory Respiratory: absent: As Per HPI, Cough, Dyspnea, Hemoptysis, Dyspnea on Exertion , Wheezing, Snoring, Stridor, Pain on Inspiration, Chest Congestion, Excessive Mucous Production, Change in Mucous Color, Pain with Coughing, Other - Gastrointestinal Gastrointestinal: absent: As Per HPI, Abdominal Pain, Belching, Bloating, Change in Bowel Habits, Change in Stool Character, Coffee Ground Emesis, Constipation, Cramping, Diarrhea, Dyspepsia, Dysphagia, Early Satiety, Excessive Flatus, Fecal Incontinence, Heartburn, Hematemesis, Hematochezia, Loose Stools, Melena, Nausea, Odynophagia, Temesmus, Vomiting, Other - Genitourinary Genitourinary: absent: As Per HPI, Change in Urinary Stream, Difficulty Urinating, Dysuria, Flank Pain, Hematuria, Pyuria, Nocturia, Urinary Incontinence, Urinary Frequency, Urinary Hesitance, Urinary Urgency, Voiding Freq/Small Amts, Freq UTI, Hx Renal/Bladder Calculi, Hx /Renal Surgery, Bladder Distension, Other - Musculoskeletal Musculoskeletal: As Per HPI - Integumentary Integumentary: As Per HPI, Skin Pain, Wounds - Neurological Neurological: absent: As Per HPI, Abnormal Gait, Abnormal Hearing, Abnormal Movements, Abnormal Speech, Behavioral Changes, Burning Sensations, Confusion, Convulsions, Disequilibrium, Dizziness, Numbness, Focal Weakness, Frequent Falls , Headaches, Lack of Coordination, Loss of Vision, Memory Loss, Paresthesias, Radicular Pain, Restless Legs, Sensory Deficit, Syncope, Tingling, Tremor, Vertigo, Weakness, Other Visual Disturbances, Other - Psychiatric Psychiatric: absent: As Per HPI, Abnormal Sleep Pattern, Anhedonia, Anxiety, Auditory Hallucinations, Behavioral Changes, Change in Appetite, Change in Libido, Confusion, Depression, Difficulty Concentrating, Hallucinations, Homicidal Ideation, Hopelessness, Irritability, Memory Loss, Mood Swings, Panic Attacks, Paranoia, Suicidal Ideation, Visual Hallucinations, Tactile Hallucinations, Other - Endocrine Endocrine: absent: As Per HPI, Change in Body Appearance, Change in Libido, Cold Intolorance, Deepening of Voice, Excessive Sweating, Fatigue, Flushing, Heat Intolorance, Increase in Ring/Shoe/Hat Size, Palpitations, Polydipsia, Polyphagia, Polyuria, Other - Hematologic/Lymphatic Hematologic: absent: As Per HPI, Easy Bleeding, Easy Bruising, Lymphadenopathy, Other Past Patient History - Infectious Disease Hx of Infectious Diseases: None - Tetanus Immunizations Tetanus Immunization: Unknown - Past Medical History & Family History Past Medical History?: Yes - Past Social History Smoking Status: Never Smoked - CARDIAC Hx Cardiac Disorders: No - PULMONARY Hx Respiratory Disorders: No - NEUROLOGICAL Hx Neurological Disorder: Yes Other/Comment: NUMBENESS FEET - HEENT Hx HEENT Problems: No - RENAL Hx Chronic Kidney Disease: No - ENDOCRINE/METABOLIC Hx Diabetes Mellitus Type 2: Yes - HEMATOLOGICAL/ONCOLOGICAL Hx Blood Disorders: No - INTEGUMENTARY Hx Dermatological Problems: No - MUSCULOSKELETAL/RHEUMATOLOGICAL Hx Musculoskeletal Disorders: No Hx Falls: Yes - GASTROINTESTINAL Hx Gastrointestinal Disorders: No - GENITOURINARY/GYNECOLOGICAL Hx Genitourinary Disorders: No - PSYCHIATRIC Hx Psychophysiologic Disorder: No Hx Substance Use: No - SURGICAL HISTORY Hx Surgeries: Yes Hx Amputation: Yes Other/Comment: SX FOR FLUID IN LUNG 1999 IN [facility] - ANESTHESIA Hx Anesthesia: Yes Hx Anesthesia Reactions: No Hx Malignant Hyperthermia: No Meds Allergies/Adverse Reactions: Allergies Allergy/AdvReac Type Severity Reaction Status Date / Time No Known Allergies Allergy Verified 12/16/17 09:09 - Medications Medications: Current Medications Enoxaparin Sodium (Lovenox) 40 mg SC DAILY [facility] Last Admin: 12/19/17 10:08 Dose: 40 mg Piperacillin Sod/Tazobactam Sod (Zosyn 3.375 Gm Iv Premix) 3.375 gm in 50 mls @ 100 mls/hr IVPB Q6H [facility] PRN Reason: Protocol Last Admin: 12/19/17 08:14 Dose: 100 mls/hr Vancomycin/Sodium Chloride (Vancomycin 1 Gm/Ns 200 Ml) 1 gm in 200 mls @ 133.333 mls/hr IVPB Q12H [facility] PRN Reason: Protocol Stop: 12/21/17 14:01 Last Admin: 12/19/17 01:40 Dose: 133.333 mls/hr Insulin Human Regular (Novolin R) 0 unit SC ACHS [facility] PRN Reason: Protocol Last Admin: 12/19/17 08:13 Dose: 2 units Lisinopril (Zestril) 20 mg PO DAILY [facility] Last Admin: 12/19/17 10:08 Dose: 20 mg Metformin HCl (Glucophage) 500 mg PO BID [facility] Last Admin: 12/19/17 10:08 Dose: 500 mg Rosuvastatin Calcium (Crestor) 10 mg PO HS [facility] Last Admin: 12/18/17 21:05 Dose: 10 mg Physical Exam - Constitutional Appears: Non-toxic, Chronically Ill - Head Exam Head Exam: NORMOCEPHALIC - Eye Exam Eye Exam: PERRL. absent: Scleral icterus - ENT Exam ENT Exam: Mucous Membranes Dry, Normal External Ear Exam - Neck Exam Neck exam: Negative for: Lymphadenopathy - Respiratory Exam Respiratory Exam: Decreased Breath Sounds, Clear to Auscultation Bilateral - Cardiovascular Exam Cardiovascular Exam: REGULAR RHYTHM, +S1, +S2 - GI/Abdominal Exam GI & Abdominal Exam: Diminished Bowel Sounds, Soft. absent: Tenderness - Rectal Exam Rectal Exam: Deferred - Exam Exam: NORMAL INSPECTION - Extremities Exam Extremities exam: Positive for: pedal edema, tenderness, pedal pulses present. Negative for: calf tenderness Additional comments: 1st digit infected/ gangrenous - Back Exam Back exam: absent: CVA tenderness (L), CVA tenderness (R) - Neurological Exam Neurological exam: Alert, CN II-XII Intact, Oriented x3, Reflexes Normal - Psychiatric Exam Psychiatric exam: Normal Mood - Skin Skin Exam: Dry, Intact Results - Vital Signs Recent Vital Signs: Last Vital Signs Temp 98.7 F 12/19/17 08:33 Pulse 88 12/19/17 08:33 Resp 20 12/19/17 08:33 BP 171/85 H 12/19/17 08:33 Pulse Ox 98 12/19/17 08:33 - Labs Result Diagrams: 12/21/17 06:57 12/21/17 06:57 Labs: Laboratory Results - last 24 hr 12/17/17 12/18/17 12/18/17 21:06 03:39 07:28 Sodium Potassium Chloride Carbon Dioxide Anion Gap BUN Creatinine Est GFR ( Amer) Est GFR (Non-Af Amer) POC Glucose (mg/dL) 219 H 209 H 208 H Random Glucose Calcium Vancomycin Trough 12/18/17 12/18/17 12/18/17 13:37 13:37 16:38 Sodium 141 Potassium 4.5 Chloride 102 Carbon Dioxide 26 Anion Gap 17 BUN 17 Creatinine 1.6 H Est GFR ( Amer) 54 Est GFR (Non-Af Amer) 45 POC Glucose (mg/dL) 134 H Random Glucose 198 H Calcium 10.3 Vancomycin Trough 17.1 H 12/18/17 12/19/17 12/19/17 21:14 07:14 07:59 Sodium 139 Potassium 4.8 Chloride 102 Carbon Dioxide 30 Anion Gap 12 BUN 18 Creatinine 1.9 H Est GFR ( Amer) 45 Est GFR (Non-Af Amer) 37 POC Glucose (mg/dL) 221 H 213 H Random Glucose 213 H Calcium 9.3 Vancomycin Trough 12/19/17 11:14 Sodium Potassium Chloride Carbon Dioxide Anion Gap BUN Creatinine Est GFR ( Amer) Est GFR (Non-Af Amer) POC Glucose (mg/dL) 379 H Random Glucose Calcium Vancomycin Trough Assessment & Plan (1) Foot ulcer due to secondary DM Status: Acute (2) Gangrene of toe of right foot Status: Acute (3) Hyperglycemia Status: Acute (4) Osteomyelitis of right foot Status: Acute (5) Edema of foot Status: Acute - Assessment and Plan (Free Text) Assessment: for OR amputation cont IV antibiotics
[2017-12-19] MEDS ORDERED: Sodium Chloride 0.9% 1,000 ML IV SCH (12:15)
[2017-12-19] MEDS: Metoprolol Succinate 25 mg XL Tab PO SCH (12:16)
[2017-12-19 16:56] LABS: SQUAMOUS EPITHIAL < 1 /hpf (0-5); URINE BACTERIA RARE (<OCC); URINE BILIRUBIN NEGATIVE (NEGATIVE); URINE BLOOD NEGATIVE (NEGATIVE); URINE CLARITY Clear (Clear); URINE COLOR Straw (YELLOW); URINE GLUCOSE (UA) 3+ mg/dL (Normal); URINE LEUKOCYTE ESTERASE NEG Leu/uL (Negative); URINE PROTEIN 2+ mg/dL (NEGATIVE); URINE UROBILINOGEN NORMAL mg/dL (0.2-1.0)
--- NOTE | 2017-12-19 17:01 | CP.PCM.PCO ---
Physician Communication Note - Physician Communication Note Physician Communication Note: patient is medically cleared for surgery as per DR Berger.
--- NOTE | 2017-12-19 20:14 | CP.PCM.PCO ---
Physician Communication Note - Physician Communication Note Physician Communication Note: medically stable for or with average risk
--- NOTE | 2017-12-19 23:43 | CP.PCM.PN ---
Objective - Vital Signs/Intake and Output Vital Signs (last 24 hours): Temp Pulse Resp BP Pulse Ox 98.3 F 82 20 157/76 H 98 12/19/17 15:00 12/19/17 15:00 12/19/17 15:00 12/19/17 15:00 12/19/17 15:00 Intake and Output: 12/19/17 12/20/17 18:59 06:59 Intake Total 400 Balance 400 - Medications Medications: Current Medications Enoxaparin Sodium (Lovenox) 40 mg SC DAILY [facility] Last Admin: 12/19/17 10:08 Dose: 40 mg Hydralazine HCl (Apresoline) 50 mg PO BID [facility] Last Admin: 12/19/17 17:24 Dose: 50 mg Piperacillin Sod/Tazobactam Sod (Zosyn 3.375 Gm Iv Premix) 3.375 gm in 50 mls @ 100 mls/hr IVPB Q6H [facility] PRN Reason: Protocol Last Admin: 12/19/17 21:45 Dose: 100 mls/hr Insulin Human Regular (Novolin R) 0 unit SC ACHS [facility] PRN Reason: Protocol Last Admin: 12/19/17 21:44 Dose: Not Given Metformin HCl (Glucophage) 500 mg PO BID [facility] Last Admin: 12/19/17 17:24 Dose: 500 mg Metoprolol Succinate (Toprol Xl) 25 mg PO DAILY [facility] Last Admin: 12/19/17 12:16 Dose: 25 mg Rosuvastatin Calcium (Crestor) 10 mg PO HS [facility] Last Admin: 12/19/17 21:45 Dose: 10 mg - Labs Labs: 12/18/17 07:18 12/19/17 07:59 PT 13.0 SECONDS (9.7-12.2) H 12/16/17 10:17 INR 1.2 12/16/17 10:17 APTT 38 SECONDS (21-34) H 12/16/17 10:17 Assessment and Plan (1) Foot ulcer due to secondary DM Status: Acute (2) Hyperglycemia Status: Acute (3) Edema of foot Status: Acute (4) Hypertension Status: Acute (5) Charcot's arthropathy associated with type 2 diabetes mellitus Status: Chronic (6) Diabetes mellitus type 2 in nonobese Status: Chronic
[2017-12-20] MEDS: Piperacill/Tazo 3.375gm in Dex 3.375 GM/50 ML BAG IVPB SCH ×4 (02:19→21:43)
[2017-12-20 07:42] LABS: BASO # 0.1 K/uL (0.0-0.2); BASO % 0.7 % (0.0-2.0); EOS # 0.1 K/uL (0.0-0.7); EOS % 0.8 % (0.0-4.0); HEMOGLOBIN 9.9 g/dL (12.0-18.0); LYMPH # 1.1 K/uL (1.0-4.3); LYMPH % 11.4 % (20.0-40.0); MEAN CELL VOLUME 76.7 fL (80.0-94.0); MEAN CORPUSCULAR HEMOGLOBIN 25.7 pg (27.0-31.0); MEAN CORPUSCULAR HGB CONC 33.5 g/dL (33.0-37.0); MEAN PLATELET VOLUME 7.7 fL (7.2-11.7); MONO # 0.7 K/uL (0.0-0.8); MONO % 7.3 % (0.0-10.0); NEUT # 7.6 K/uL (1.8-7.0); NEUT % 79.8 % (50.0-75.0); RBC 3.86 Mil/uL (4.40-5.90); RED CELL DISTRIBUTION WIDTH 13.4 % (11.5-14.5); WHITE BLOOD COUNT 9.6 K/uL (4.8-10.8)
[2017-12-20] MEDS: (Novolin R) Insulin Human Regular 100 units/ml vial SC SCH ×4 (08:18→22:00)
[2017-12-20] MEDS: Metoprolol Succinate 25 mg XL Tab PO SCH (09:11)
--- NOTE | 2017-12-20 09:18 | PN ---
Copied To: Williams Berger MD Attending MD: Williams Berger MD DATE: 12/19/2017 SUBJECTIVE: The patient is here for OR tomorrow morning. He has MRI positive for osteomyelitis. PHYSICAL EXAMINATION: VITAL SIGNS: Blood pressure 157/73, pulse 82, respiratory rate 22, temperature 98.3. LUNGS: Clear. CARDIOVASCULAR: S1, S2 regular. ABDOMEN: Soft. ASSESSMENT: 1. Osteomyelitis of the right foot, status post MRI, hallux valgus deformity. 2. Type 2 diabetes. 3. Chronic kidney disease. 4. Hypertension. PLAN: Urinalysis positive for proteinuria. We will discontinue lisinopril and add hydralazine. Monitor patient. Williams Berger MD
[2017-12-20 10:13] LABS: CALCIUM 9.2 mg/dl (8.6-10.4)
[2017-12-20] MEDS ORDERED: Lidocaine Hydrochloride 10 ML INJ ONE (12:01)
[2017-12-20] MEDS ORDERED: Bupivacaine 0.25% 20 ML INJ IJ ONE (12:01)
[2017-12-20] MEDS ORDERED: Propofol 10 mg/ml Inj (20 ML) ONE ×2 (12:46→13:15)
[2017-12-20] MEDS ORDERED: Midazolam 2 MG/2 ML VIAL ONE (12:46)
[2017-12-20] MEDS ORDERED: Acetaminophen-Codeine 300/30 mg Tab PO PRN (14:00)
[2017-12-20] MEDS ORDERED: Oxycodone/Acetaminophen 5/325 mg Tab PO PRN ×2 (14:00→14:15)
--- NOTE | 2017-12-20 14:03 | PCM.SURG1 ---
Surgeon's Initial Post Op Note - Surgeon's Notes Surgeon: Dr. Tyesha Johnson, DPM Crematory Attendant: Blanca Tovar PGY 1, Jacquelin Freeman PGY2 Type of Anesthesia: IV Sedation, Local Pre-Operative Diagnosis: right hallux osteomyelitis with gangrenous changes. Operative Findings: see dictation. Injectibles: preop: 15 cc of 1:1 mixture of 1% lidocaine plain and .25% marcaine plain. post op: 8 cc of .25% marcaine plain. materials: 2-0 prolene Post-Operative Diagnosis: right hallux osteomyelitis with gangrenous changes Operation Performed: right partial hallux amputation Specimen/Specimens Removed: Right hallucal distal phalanx and head of the proximal phalanx Estimated Blood Loss: EBL {In ML}: 5 Blood Products Given: N/A Drains Used: No Drains Post-Op Condition: Good Date of Surgery/Procedure: 12/20/17 Time of Surgery/Procedure: 14:04
--- NOTE | 2017-12-20 15:45 | RAD ---
Date of service: 12/20/2017 PROCEDURE: Right Foot Radiographs. HISTORY: s/p partial right hallux amputation COMPARISON: 12/16/2017. FINDINGS: BONES: There has been interval partial amputation of the great toe at the level of the mid shaft of the proximal phalanx. There is soft tissue irregularity in the stump consistent with postsurgical changes. There is redemonstration of a large well-circumscribed lytic lesion in the head of the 1st metatarsal. Status post amputation of the distal phalanx of the second toe. Bone alignment is normal. There is diffuse bone demineralization. JOINTS: Normal. SOFT TISSUES: Normal. OTHER FINDINGS: None. IMPRESSION: Interval partial amputation of the great toe, expected postsurgical changes. 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
[2017-12-20 16:21] VITALS: RESP 20
--- NOTE | 2017-12-20 18:24 | CP.PCM.PN ---
Subjective - Date & Time of Evaluation Date of Evaluation: 12/20/17 Time of Evaluation: 08:00 - Subjective Subjective: s/p right hallux amp toleraated well iv rx in progress Objective - Vital Signs/Intake and Output Vital Signs (last 24 hours): Temp Pulse Resp BP Pulse Ox 97.2 F L 86 20 166/90 H 99 12/20/17 15:20 12/20/17 15:20 12/20/17 15:20 12/20/17 15:20 12/20/17 15:20 Intake and Output: 12/20/17 12/20/17 06:59 18:59 Intake Total 50 640 Balance 50 640 - Medications Medications: Current Medications Acetaminophen/Codeine Phosphate (Tylenol/Codeine 300 Mg/30 Mg) 1 ea PO Q6H PRN PRN Reason: Pain, Mild (1-3) Enoxaparin Sodium (Lovenox) 40 mg SC DAILY [facility] Last Admin: 12/19/17 10:08 Dose: 40 mg Hydralazine HCl (Apresoline) 50 mg PO BID [facility] Last Admin: 12/20/17 17:51 Dose: 50 mg Piperacillin Sod/Tazobactam Sod (Zosyn 3.375 Gm Iv Premix) 3.375 gm in 50 mls @ 100 mls/hr IVPB Q6H [facility] PRN Reason: Protocol Last Admin: 12/20/17 15:15 Dose: 100 mls/hr Insulin Human Regular (Novolin R) 0 unit SC ACHS [facility] PRN Reason: Protocol Last Admin: 12/20/17 17:51 Dose: 2 units Metformin HCl (Glucophage) 500 mg PO DAILY [facility] Metoprolol Succinate (Toprol Xl) 50 mg PO DAILY [facility] Oxycodone/Acetaminophen (Percocet 5/325 Mg Tab) 2 tab PO Q4H PRN PRN Reason: Pain, severe (8-10) Stop: 12/23/17 14:01 Oxycodone/Acetaminophen (Percocet 5/325 Mg Tab) 1 tab PO Q6H PRN PRN Reason: Pain, moderate (4-7) Stop: 12/23/17 14:16 Rosuvastatin Calcium (Crestor) 10 mg PO HS [facility] Last Admin: 12/19/17 21:45 Dose: 10 mg - Labs Labs: 12/20/17 07:21 12/20/17 10:03 PT 13.0 SECONDS (9.7-12.2) H 12/16/17 10:17 INR 1.2 12/16/17 10:17 APTT 38 SECONDS (21-34) H 12/16/17 10:17 - Constitutional Appears: Non-toxic, Chronically Ill - Head Exam Head Exam: NORMOCEPHALIC - Eye Exam Eye Exam: PERRL - ENT Exam ENT Exam: Mucous Membranes Dry - Neck Exam Neck Exam: absent: Lymphadenopathy - Respiratory Exam Respiratory Exam: Decreased Breath Sounds - Cardiovascular Exam Cardiovascular Exam: REGULAR RHYTHM - GI/Abdominal Exam GI & Abdominal Exam: Distended - Rectal Exam Rectal Exam: Deferred - Exam Exam: NORMAL INSPECTION - Extremities Exam Extremities Exam: absent: Pedal Edema - Back Exam Back Exam: absent: CVA tenderness (L), CVA tenderness (R) Assessment and Plan (1) Gangrene of toe of right foot Status: Acute (2) Gangrene of toe of right foot Status: Acute (3) Foot ulcer due to secondary DM Status: Acute (4) Charcot's arthropathy associated with type 2 diabetes mellitus Status: Chronic (5) Diabetes mellitus type 2 in nonobese Status: Chronic (6) Osteomyelitis of right foot Status: Acute (7) Osteomyelitis of right foot Status: Acute - Assessment and Plan (Free Text) Assessment: cont iv rx and wound care
--- NOTE | 2017-12-20 23:10 | CP.PCM.PN ---
Objective - Vital Signs/Intake and Output Vital Signs (last 24 hours): Temp Pulse Resp BP Pulse Ox 97.2 F L 86 20 166/90 H 99 12/20/17 15:20 12/20/17 15:20 12/20/17 15:20 12/20/17 15:20 12/20/17 15:20 Intake and Output: 12/20/17 12/21/17 18:59 06:59 Intake Total 640 Balance 640 - Medications Medications: Current Medications Acetaminophen/Codeine Phosphate (Tylenol/Codeine 300 Mg/30 Mg) 1 ea PO Q6H PRN PRN Reason: Pain, Mild (1-3) Enoxaparin Sodium (Lovenox) 40 mg SC DAILY [facility] Last Admin: 12/19/17 10:08 Dose: 40 mg Hydralazine HCl (Apresoline) 50 mg PO BID [facility] Last Admin: 12/20/17 17:51 Dose: 50 mg Piperacillin Sod/Tazobactam Sod (Zosyn 3.375 Gm Iv Premix) 3.375 gm in 50 mls @ 100 mls/hr IVPB Q6H [facility] PRN Reason: Protocol Last Admin: 12/20/17 21:43 Dose: 100 mls/hr Insulin Human Regular (Novolin R) 0 unit SC ACHS [facility] PRN Reason: Protocol Last Admin: 12/20/17 17:51 Dose: 2 units Metformin HCl (Glucophage) 500 mg PO DAILY [facility] Metoprolol Succinate (Toprol Xl) 50 mg PO DAILY [facility] Oxycodone/Acetaminophen (Percocet 5/325 Mg Tab) 2 tab PO Q4H PRN PRN Reason: Pain, severe (8-10) Stop: 12/23/17 14:01 Oxycodone/Acetaminophen (Percocet 5/325 Mg Tab) 1 tab PO Q6H PRN PRN Reason: Pain, moderate (4-7) Stop: 12/23/17 14:16 Rosuvastatin Calcium (Crestor) 10 mg PO HS [facility] Last Admin: 12/20/17 21:43 Dose: 10 mg - Labs Labs: 12/20/17 07:21 12/20/17 10:03 PT 13.0 SECONDS (9.7-12.2) H 12/16/17 10:17 INR 1.2 12/16/17 10:17 APTT 38 SECONDS (21-34) H 12/16/17 10:17 Assessment and Plan (1) Foot ulcer due to secondary DM Status: Acute (2) Hyperglycemia Status: Acute (3) Edema of foot Status: Acute (4) Hypertension Status: Acute (5) Charcot's arthropathy associated with type 2 diabetes mellitus Status: Chronic (6) Diabetes mellitus type 2 in nonobese Status: Chronic
[2017-12-21] MEDS: Piperacill/Tazo 3.375gm in Dex 3.375 GM/50 ML BAG IVPB SCH ×4 (02:35→21:20)
--- NOTE | 2017-12-21 05:26 | PN ---
Copied To: Williams Berger MD Attending MD: Williams Berger MD DATE: 12/20/2017 CHIEF COMPLAINT: The patient is postop. He denies any shortness of breath, chest pain. No nausea, vomiting. PHYSICAL EXAMINATION: VITAL SIGNS: Blood pressure 166/90, pulse rate , respiratory rate 20, temperature 97.2. LUNGS: Clear. CVS: S1, S2. Regular. ABDOMEN: ASSESSMENT: 1. Right foot osteomyelitis, status post surgery. The patient is postoperative and is on antibiotics, being seen by Infectious Disease. 2. Type 2 diabetes. 3. Chronic kidney disease. 4. Anemia due to chronic kidney disease. PLAN: Admit. Detailed orders written. Seen and examined. Williams Berger MD
[2017-12-21 07:12] LABS: BASO % 0.5 % (0.0-2.0); EOS # 0.1 K/uL (0.0-0.7); EOS % 0.8 % (0.0-4.0); HEMOGLOBIN 10.2 g/dL (12.0-18.0); LYMPH # 0.9 K/uL (1.0-4.3); LYMPH % 9.7 % (20.0-40.0); MEAN CELL VOLUME 75.9 fL (80.0-94.0); MEAN CORPUSCULAR HEMOGLOBIN 25.7 pg (27.0-31.0); MEAN CORPUSCULAR HGB CONC 33.9 g/dL (33.0-37.0); MEAN PLATELET VOLUME 7.6 fL (7.2-11.7); MONO # 0.8 K/uL (0.0-0.8); MONO % 9.4 % (0.0-10.0); NEUT # 7.1 K/uL (1.8-7.0); NEUT % 79.6 % (50.0-75.0); PLATELET COUNT 421 K/uL (130-400); RBC 3.96 Mil/uL (4.40-5.90); RED CELL DISTRIBUTION WIDTH 13.5 % (11.5-14.5); WHITE BLOOD COUNT 8.9 K/uL (4.8-10.8)
[2017-12-21 07:32] LABS: CALCIUM 9.4 mg/dl (8.6-10.4)
[2017-12-21] MEDS: (Novolin R) Insulin Human Regular 100 units/ml vial SC SCH ×4 (08:41→21:22)
[2017-12-21 08:57] LABS: BASOPHIL 1 % (0-2); EOSINOPHIL 1 % (0-4); LYMPHOCYTE 12 % (20-40); MONOCYTE 8 % (0-10); NEUTROPHIL 78 % (50-75); PLATELET ESTIMATE NORMAL (NORMAL); TOTAL CELLS COUNTED 100
[2017-12-21 09:01] LABS: LARGE PLATELETS PRESENT
[2017-12-21] MEDS: Enoxaparin 40 mg Syringe SC SCH (10:46)
[2017-12-21] MEDS: Metoprolol Succinate 50 mg XL Tab PO SCH (10:46)
--- NOTE | 2017-12-21 11:33 | CP.PCM.PN ---
Subjective - Date & Time of Evaluation Date of Evaluation: 12/21/17 Time of Evaluation: 09:00 - Subjective Subjective: Podiatry Progress Note- Dr. Alex SanchezM seen and evaluated at bedside 1 day s/p partial right hallux amputation secondary to right distal hallux osteomyelitis with gangrenous changes. Patient is seen resting comfortably in bed, in NAD, and AA0x3. Patient reports no pain to the surgical site. Reports has not worked with physical therapy today to tried walking. Patient denies acute overnight events. Denies fever, shortness of breath, chest pains or chills. Objective - Vital Signs/Intake and Output Vital Signs (last 24 hours): Temp Pulse Resp BP Pulse Ox 98 F 81 20 158/86 H 99 12/21/17 08:27 12/21/17 08:27 12/21/17 08:27 12/21/17 08:27 12/21/17 08:27 Intake and Output: 12/21/17 12/21/17 06:59 18:59 Intake Total 290 Balance 290 - Medications Medications: Current Medications Acetaminophen/Codeine Phosphate (Tylenol/Codeine 300 Mg/30 Mg) 1 ea PO Q6H PRN PRN Reason: Pain, Mild (1-3) Enoxaparin Sodium (Lovenox) 40 mg SC DAILY [facility] Last Admin: 12/21/17 10:46 Dose: 40 mg Hydralazine HCl (Apresoline) 50 mg PO BID [facility] Last Admin: 12/21/17 10:46 Dose: 50 mg Piperacillin Sod/Tazobactam Sod (Zosyn 3.375 Gm Iv Premix) 3.375 gm in 50 mls @ 100 mls/hr IVPB Q6H [facility] PRN Reason: Protocol Last Admin: 12/21/17 08:40 Dose: 100 mls/hr Insulin Human Regular (Novolin R) 0 unit SC ACHS [facility] PRN Reason: Protocol Last Admin: 12/21/17 08:41 Dose: 1 units Metformin HCl (Glucophage) 500 mg PO DAILY [facility] Last Admin: 12/21/17 10:46 Dose: 500 mg Metoprolol Succinate (Toprol Xl) 50 mg PO DAILY [facility] Last Admin: 12/21/17 10:46 Dose: 50 mg Oxycodone/Acetaminophen (Percocet 5/325 Mg Tab) 2 tab PO Q4H PRN PRN Reason: Pain, severe (8-10) Stop: 12/23/17 14:01 Oxycodone/Acetaminophen (Percocet 5/325 Mg Tab) 1 tab PO Q6H PRN PRN Reason: Pain, moderate (4-7) Stop: 12/23/17 14:16 Rosuvastatin Calcium (Crestor) 10 mg PO HS [facility] Last Admin: 12/20/17 21:43 Dose: 10 mg - Labs Labs: 12/21/17 06:57 12/21/17 06:57 PT 13.0 SECONDS (9.7-12.2) H 12/16/17 10:17 INR 1.2 12/16/17 10:17 APTT 38 SECONDS (21-34) H 12/16/17 10:17 - Constitutional Appears: Well, Non-toxic, No Acute Distress - Extremities Exam Extremities Exam: absent: Calf Tenderness Additional comments: Right Lower Extremity Exam VASC: DP and PT 2/4, TG warm to warm, with increased warmth at the right hallux , CFT less than 3 seconds to all digit on right X 4, unable to assess to the right hallux, non-pitting edema noted to the right hallux from the level of the MTPJ NEURO: epicritic and protective sensation diminished DERM: surgical site is clean, dry. Skin edges well co-apted and well approximately. Skin integrity appears dry. No active drainage, no streaking, no erythema. No odor appreciated. Linear superficial ulceration noted to the plantar aspect of the hallux plantar sulcus, measuring approximately .1 cm x 1 cm x .1 cm. Wound base is granular. no clinical signs of infection the plantar ulceration MSK: minimal pain on palpation to the right hallux, MSK 5/5 on DFs/PFs/everters/ inverters, no pain with ankle range of motion - Neurological Exam Neurological Exam: Alert, Awake, Oriented x3 - Psychiatric Exam Psychiatric exam: Normal Affect, Normal Mood Assessment and Plan - Assessment and Plan (Free Text) Assessment: 57M 1 day s/p partial hallux ampuation secondary to (+) OM distal hallux with ulceration and gangrenous changes -stable Plan: Patient seen and evaluated Plan discussed with attending Dr. Johnson Chart, labs and vitals reviewed- WBC 8.9 (12/21/17) Wound Culture right toe- Beta Hemolytic Strep Group B C/w abx per ID ESR (12/16/17)- 128 mm/hr, (12/18/17) - 130mm/hr CRP (12/16/17)- 135 mg/L Right Foot X-ray- possible osteomyelitis of the tip of the hallux MRI reviewed- right 1st distal phalanx osteomyelitis and minimal reactive edema seen at head of 1st proximal phalanx Patient is 1 day s/p right partial hallux amputation. Doing well- stable Bone culture taken- pending distal phalanx pathology- pending Dressed hallux with soaked betadine xeroform, dsd, and kerlix Will continue to follow patient while in house Patient is stable per podiatry standpoint Upon discharge, patient to follow up with Dr. Johnson at [facility] Monday Patient may WBAT in surgical shoe to the heels Patient to keep dressing clean, dry and intact. DO not get wet If dressing gets wet, please cleanse with saline solution, pat dry, applied betadine soaked xeroform to entire hallux, dsd, and kerlix. Apply very light TERRIE
--- NOTE | 2017-12-21 18:52 | CP.PCM.PN ---
Subjective - Date & Time of Evaluation Date of Evaluation: 12/21/17 Time of Evaluation: 08:00 - Subjective Subjective: improving await OR cultures Objective - Vital Signs/Intake and Output Vital Signs (last 24 hours): Temp Pulse Resp BP Pulse Ox 99 F 81 20 148/81 98 12/21/17 16:00 12/21/17 16:00 12/21/17 16:00 12/21/17 16:00 12/21/17 16:00 Intake and Output: 12/21/17 12/21/17 06:59 18:59 Intake Total 290 Balance 290 - Medications Medications: Current Medications Acetaminophen/Codeine Phosphate (Tylenol/Codeine 300 Mg/30 Mg) 1 ea PO Q6H PRN PRN Reason: Pain, Mild (1-3) Enoxaparin Sodium (Lovenox) 40 mg SC DAILY [facility] Last Admin: 12/21/17 10:46 Dose: 40 mg Hydralazine HCl (Apresoline) 50 mg PO BID [facility] Last Admin: 12/21/17 17:19 Dose: 50 mg Piperacillin Sod/Tazobactam Sod (Zosyn 3.375 Gm Iv Premix) 3.375 gm in 50 mls @ 100 mls/hr IVPB Q6H [facility] PRN Reason: Protocol Last Admin: 12/21/17 14:05 Dose: 100 mls/hr Insulin Human Regular (Novolin R) 0 unit SC ACHS [facility] PRN Reason: Protocol Last Admin: 12/21/17 17:20 Dose: 2 units Metformin HCl (Glucophage) 500 mg PO DAILY [facility] Last Admin: 12/21/17 10:46 Dose: 500 mg Metoprolol Succinate (Toprol Xl) 50 mg PO DAILY [facility] Last Admin: 12/21/17 10:46 Dose: 50 mg Oxycodone/Acetaminophen (Percocet 5/325 Mg Tab) 2 tab PO Q4H PRN PRN Reason: Pain, severe (8-10) Stop: 12/23/17 14:01 Oxycodone/Acetaminophen (Percocet 5/325 Mg Tab) 1 tab PO Q6H PRN PRN Reason: Pain, moderate (4-7) Stop: 12/23/17 14:16 Rosuvastatin Calcium (Crestor) 10 mg PO HS [facility] Last Admin: 12/20/17 21:43 Dose: 10 mg - Labs Labs: 12/21/17 06:57 12/21/17 06:57 PT 13.0 SECONDS (9.7-12.2) H 12/16/17 10:17 INR 1.2 12/16/17 10:17 APTT 38 SECONDS (21-34) H 12/16/17 10:17 Assessment and Plan (1) Foot ulcer due to secondary DM Status: Acute (2) Gangrene of toe of right foot Status: Acute (3) Hyperglycemia Status: Acute (4) Osteomyelitis of right foot Status: Acute (5) Edema of foot Status: Acute
--- NOTE | 2017-12-21 23:25 | CP.PCM.PN ---
Objective - Vital Signs/Intake and Output Vital Signs (last 24 hours): Temp Pulse Resp BP Pulse Ox 98.1 F 82 20 150/77 97 12/21/17 23:20 12/21/17 23:20 12/21/17 23:20 12/21/17 23:20 12/21/17 23:20 Intake and Output: 12/21/17 12/22/17 18:59 06:59 Intake Total 290 Balance 290 - Medications Medications: Current Medications Acetaminophen/Codeine Phosphate (Tylenol/Codeine 300 Mg/30 Mg) 1 ea PO Q6H PRN PRN Reason: Pain, Mild (1-3) Enoxaparin Sodium (Lovenox) 40 mg SC DAILY [facility] Last Admin: 12/21/17 10:46 Dose: 40 mg Hydralazine HCl (Apresoline) 50 mg PO BID [facility] Last Admin: 12/21/17 17:19 Dose: 50 mg Piperacillin Sod/Tazobactam Sod (Zosyn 3.375 Gm Iv Premix) 3.375 gm in 50 mls @ 100 mls/hr IVPB Q6H [facility] PRN Reason: Protocol Last Admin: 12/21/17 21:20 Dose: 100 mls/hr Insulin Human Regular (Novolin R) 0 unit SC ACHS [facility] PRN Reason: Protocol Last Admin: 12/21/17 21:22 Dose: Not Given Metformin HCl (Glucophage) 500 mg PO DAILY [facility] Last Admin: 12/21/17 10:46 Dose: 500 mg Metoprolol Succinate (Toprol Xl) 50 mg PO DAILY [facility] Last Admin: 12/21/17 10:46 Dose: 50 mg Oxycodone/Acetaminophen (Percocet 5/325 Mg Tab) 2 tab PO Q4H PRN PRN Reason: Pain, severe (8-10) Stop: 12/23/17 14:01 Oxycodone/Acetaminophen (Percocet 5/325 Mg Tab) 1 tab PO Q6H PRN PRN Reason: Pain, moderate (4-7) Stop: 12/23/17 14:16 Rosuvastatin Calcium (Crestor) 10 mg PO HS [facility] Last Admin: 12/21/17 21:21 Dose: 10 mg - Labs Labs: 12/21/17 06:57 12/21/17 06:57 PT 13.0 SECONDS (9.7-12.2) H 08/11/18 10:17 INR 1.2 12/16/17 10:17 APTT 38 SECONDS (21-34) H 12/16/17 10:17 Assessment and Plan (1) Foot ulcer due to secondary DM Status: Acute (2) Hyperglycemia Status: Acute (3) Edema of foot Status: Acute (4) Hypertension Status: Acute (5) Charcot's arthropathy associated with type 2 diabetes mellitus Status: Chronic (6) Diabetes mellitus type 2 in nonobese Status: Chronic
[2017-12-22] MEDS: Piperacill/Tazo 3.375gm in Dex 3.375 GM/50 ML BAG IVPB SCH ×4 (02:45→21:18)
[2017-12-22] MEDS: (Novolin R) Insulin Human Regular 100 units/ml vial SC SCH ×4 (08:09→21:20)
[2017-12-22] MEDS: Enoxaparin 40 mg Syringe SC SCH (09:33)
[2017-12-22] MEDS: Metoprolol Succinate 50 mg XL Tab PO SCH (09:33)
--- NOTE | 2017-12-22 10:57 | PN ---
Copied To: Williams Berger MD Attending MD: Williams Berger MD DATE: 12/21/2017 SUBJECTIVE: The patient has some mild right foot pain. He is afebrile. He is on antibiotics. He has osteomyelitis. No fever. He is on antibiotics, seen by ID. PHYSICAL EXAMINATION: VITAL SIGNS: Blood pressure 150/77, pulse 82, respiratory rate 20, temperature 98.9. LUNGS: Clear. CVS: S1 and S2 are regular. ABDOMEN: Soft. EXTREMITIES: Right foot has a dressing. LABORATORY DATA: WBC 8.9, hemoglobin 10.2, hematocrit 30.1, platelets 421,000. Sodium 130, potassium 4.3, chloride 102, bicarbonate 28, BUN 18, creatinine 1.8. She was down to 192. ASSESSMENT: 1. Osteomyelitis of the right foot, status post type 2 diabetes. 2. Chronic kidney disease. 3. Hypertension. 4. Hyperlipidemia. PLAN: Continue current medication. Monitor patient. Williams Berger MD
--- NOTE | 2017-12-22 15:28 | CP.PCM.PN ---
Subjective - Date & Time of Evaluation Date of Evaluation: 12/22/17 Time of Evaluation: 09:00 - Subjective Subjective: Podiatry Progress Note- Dr. Alex SanchezM seen and evaluated at bedside 2 days s/p partial right hallux amputation secondary to right distal hallux osteomyelitis with gangrenous changes. Patient is seen resting comfortably in bed, in NAD, and AA0x3. Patient reports that he will be going home today. Patient reports no pain to the surgical site. Reports has been ambulating in surgical shoe without issues. Patient denies acute overnight events. Denies fever, shortness of breath, chest pains or chills. Objective - Vital Signs/Intake and Output Vital Signs (last 24 hours): Temp Pulse Resp BP Pulse Ox 98.5 F 92 H 20 153/86 H 95 12/22/17 07:51 12/22/17 07:51 12/22/17 07:51 12/22/17 07:51 12/22/17 07:51 Intake and Output: 12/22/17 12/22/17 06:59 18:59 Intake Total 230 Balance 230 - Medications Medications: Current Medications Acetaminophen/Codeine Phosphate (Tylenol/Codeine 300 Mg/30 Mg) 1 ea PO Q6H PRN PRN Reason: Pain, Mild (1-3) Enoxaparin Sodium (Lovenox) 40 mg SC DAILY [facility] Last Admin: 12/22/17 09:33 Dose: 40 mg Hydralazine HCl (Apresoline) 50 mg PO BID [facility] Last Admin: 12/22/17 09:33 Dose: 50 mg Piperacillin Sod/Tazobactam Sod (Zosyn 3.375 Gm Iv Premix) 3.375 gm in 50 mls @ 100 mls/hr IVPB Q6H [facility] PRN Reason: Protocol Last Admin: 12/22/17 14:45 Dose: 100 mls/hr Insulin Human Regular (Novolin R) 0 unit SC ACHS [facility] PRN Reason: Protocol Last Admin: 12/22/17 13:20 Dose: 3 units Metformin HCl (Glucophage) 500 mg PO DAILY [facility] Last Admin: 12/22/17 09:33 Dose: 500 mg Metoprolol Succinate (Toprol Xl) 50 mg PO DAILY [facility] Last Admin: 12/22/17 09:33 Dose: 50 mg Oxycodone/Acetaminophen (Percocet 5/325 Mg Tab) 2 tab PO Q4H PRN PRN Reason: Pain, severe (8-10) Stop: 12/23/17 14:01 Oxycodone/Acetaminophen (Percocet 5/325 Mg Tab) 1 tab PO Q6H PRN PRN Reason: Pain, moderate (4-7) Stop: 12/23/17 14:16 Rosuvastatin Calcium (Crestor) 10 mg PO HS [facility] Last Admin: 12/21/17 21:21 Dose: 10 mg - Labs Labs: 12/21/17 06:57 12/21/17 06:57 PT 13.0 SECONDS (9.7-12.2) H 12/16/17 10:17 INR 1.2 12/16/17 10:17 APTT 38 SECONDS (21-34) H 12/16/17 10:17 - Constitutional Appears: Well, Non-toxic, No Acute Distress - Extremities Exam Extremities Exam: absent: Calf Tenderness Additional comments: Right Lower Extremity Exam VASC: DP and PT 2/4, TG warm to warm, with increased warmth at the right hallux , CFT less than 3 seconds to all digit on right X 4, unable to assess to the right hallux, non-pitting edema noted to the right hallux from the level of the MTPJ NEURO: epicritic and protective sensation diminished DERM: surgical site is clean, dry. Skin edges well co-apted and well approximately. Skin integrity appears dry. No active drainage, no streaking, no erythema. No odor appreciated. Linear superficial ulceration noted to the plantar aspect of the hallux plantar sulcus, measuring approximately .1 cm x 1 cm x .1 cm. Wound base is granular. no clinical signs of infection the plantar ulceration MSK: minimal pain on palpation to the right hallux, MSK 5/5 on DFs/PFs/everters/ inverters, no pain with ankle range of motion - Neurological Exam Neurological Exam: Alert, Awake, Oriented x3 - Psychiatric Exam Psychiatric exam: Normal Affect, Normal Mood Assessment and Plan - Assessment and Plan (Free Text) Assessment: 57M 2 days s/p partial hallux ampuation secondary to (+) OM distal hallux with ulceration and gangrenous changes -stable Plan: Patient seen and evaluated Plan discussed with attending Dr. Johnson Chart, labs and vitals reviewed- WBC 8.9 (12/21/17) Wound Culture right toe- Beta Hemolytic Strep Group B C/w abx per ID ESR (12/16/17)- 128 mm/hr, (12/18/17) - 130mm/hr CRP (12/16/17)- 135 mg/L Right Foot X-ray- possible osteomyelitis of the tip of the hallux MRI reviewed- right 1st distal phalanx osteomyelitis and minimal reactive edema seen at head of 1st proximal phalanx Patient is 1 day s/p right partial hallux amputation. Doing well- stable Bone culture taken- pending distal phalanx pathology- pending Dressed hallux with soaked betadine xeroform, dsd, and kerlix Will continue to follow patient while in house Patient is stable per podiatry standpoint Upon discharge, patient to follow up with Dr. Johnson at [facility] [place] Monday Patient may WBAT in surgical shoe to the heels Patient to keep dressing clean, dry and intact. DO not get wet If dressing gets wet, please cleanse with saline solution, pat dry, applied betadine soaked xeroform to entire hallux, dsd, and kerlix. Apply very light TERRIE
--- NOTE | 2017-12-22 18:16 | CP.PCM.PN ---
Subjective - Date & Time of Evaluation Date of Evaluation: 12/22/17 Time of Evaluation: 09:00 - Subjective Subjective: seen and evaluated at bedside 2 days s/p partial right hallux amputation secondary to right distal hallux osteomyelitis with gangrenous changes. Objective - Vital Signs/Intake and Output Vital Signs (last 24 hours): Temp Pulse Resp BP Pulse Ox 97.4 F L 81 20 163/80 H 98 12/22/17 15:45 12/22/17 15:45 12/22/17 15:45 12/22/17 15:45 12/22/17 15:45 Intake and Output: 12/22/17 12/22/17 06:59 18:59 Intake Total 230 Balance 230 - Medications Medications: Current Medications Acetaminophen/Codeine Phosphate (Tylenol/Codeine 300 Mg/30 Mg) 1 ea PO Q6H PRN PRN Reason: Pain, Mild (1-3) Enoxaparin Sodium (Lovenox) 40 mg SC DAILY [facility] Last Admin: 12/22/17 09:33 Dose: 40 mg Hydralazine HCl (Apresoline) 50 mg PO BID [facility] Last Admin: 12/22/17 17:00 Dose: 50 mg Piperacillin Sod/Tazobactam Sod (Zosyn 3.375 Gm Iv Premix) 3.375 gm in 50 mls @ 100 mls/hr IVPB Q6H [facility] PRN Reason: Protocol Last Admin: 12/22/17 14:45 Dose: 100 mls/hr Insulin Human Regular (Novolin R) 0 unit SC ACHS [facility] PRN Reason: Protocol Last Admin: 12/22/17 17:01 Dose: 2 units Metformin HCl (Glucophage) 500 mg PO DAILY [facility] Last Admin: 12/22/17 09:33 Dose: 500 mg Metoprolol Succinate (Toprol Xl) 50 mg PO DAILY [facility] Last Admin: 12/22/17 09:33 Dose: 50 mg Oxycodone/Acetaminophen (Percocet 5/325 Mg Tab) 2 tab PO Q4H PRN PRN Reason: Pain, severe (8-10) Stop: 12/23/17 14:01 Oxycodone/Acetaminophen (Percocet 5/325 Mg Tab) 1 tab PO Q6H PRN PRN Reason: Pain, moderate (4-7) Stop: 12/23/17 14:16 Rosuvastatin Calcium (Crestor) 10 mg PO HS [facility] Last Admin: 12/21/17 21:21 Dose: 10 mg - Labs Labs: 12/21/17 06:57 12/21/17 06:57 PT 13.0 SECONDS (9.7-12.2) H 12/16/17 10:17 INR 1.2 12/16/17 10:17 APTT 38 SECONDS (21-34) H 12/16/17 10:17 - Constitutional Appears: Chronically Ill - Head Exam Head Exam: NORMOCEPHALIC - Eye Exam Eye Exam: PERRL - ENT Exam ENT Exam: Mucous Membranes Dry - Neck Exam Neck Exam: absent: Lymphadenopathy - Respiratory Exam Respiratory Exam: Decreased Breath Sounds - Cardiovascular Exam Cardiovascular Exam: REGULAR RHYTHM - GI/Abdominal Exam GI & Abdominal Exam: Distended, Soft - Rectal Exam Rectal Exam: Deferred - Exam Exam: NORMAL INSPECTION Assessment and Plan (1) Foot ulcer due to secondary DM Status: Acute (2) Gangrene of toe of right foot Status: Acute (3) Hyperglycemia Status: Acute (4) Osteomyelitis of right foot Status: Acute (5) Edema of foot Status: Acute - Assessment and Plan (Free Text) Assessment: wound healing or cultures pending wound grew strep consider d/c on PO Augmentin
--- NOTE | 2017-12-22 23:19 | CP.PCM.PN ---
Objective - Vital Signs/Intake and Output Vital Signs (last 24 hours): Temp Pulse Resp BP Pulse Ox 97.4 F L 81 20 163/80 H 98 12/22/17 15:45 12/22/17 15:45 12/22/17 15:45 12/22/17 15:45 12/22/17 15:45 - Medications Medications: Current Medications Acetaminophen/Codeine Phosphate (Tylenol/Codeine 300 Mg/30 Mg) 1 ea PO Q6H PRN PRN Reason: Pain, Mild (1-3) Enoxaparin Sodium (Lovenox) 40 mg SC DAILY [facility] Last Admin: 12/22/17 09:33 Dose: 40 mg Hydralazine HCl (Apresoline) 50 mg PO BID [facility] Last Admin: 12/22/17 17:00 Dose: 50 mg Piperacillin Sod/Tazobactam Sod (Zosyn 3.375 Gm Iv Premix) 3.375 gm in 50 mls @ 100 mls/hr IVPB Q6H [facility] PRN Reason: Protocol Last Admin: 12/22/17 21:18 Dose: 100 mls/hr Insulin Human Regular (Novolin R) 0 unit SC ACHS [facility] PRN Reason: Protocol Last Admin: 12/22/17 21:20 Dose: Not Given Metformin HCl (Glucophage) 500 mg PO DAILY [facility] Last Admin: 12/22/17 09:33 Dose: 500 mg Metoprolol Succinate (Toprol Xl) 50 mg PO DAILY [facility] Last Admin: 12/22/17 09:33 Dose: 50 mg Oxycodone/Acetaminophen (Percocet 5/325 Mg Tab) 2 tab PO Q4H PRN PRN Reason: Pain, severe (8-10) Stop: 12/23/17 14:01 Oxycodone/Acetaminophen (Percocet 5/325 Mg Tab) 1 tab PO Q6H PRN PRN Reason: Pain, moderate (4-7) Stop: 12/23/17 14:16 Rosuvastatin Calcium (Crestor) 10 mg PO HS [facility] Last Admin: 12/22/17 21:18 Dose: 10 mg - Labs Labs: 12/21/17 06:57 12/21/17 06:57 PT 13.0 SECONDS (9.7-12.2) H 12/16/17 10:17 INR 1.2 12/16/17 10:17 APTT 38 SECONDS (21-34) H 12/16/17 10:17 Assessment and Plan (1) Foot ulcer due to secondary DM Status: Acute (2) Hyperglycemia Status: Acute (3) Edema of foot Status: Acute (4) Hypertension Status: Acute (5) Charcot's arthropathy associated with type 2 diabetes mellitus Status: Chronic (6) Diabetes mellitus type 2 in nonobese Status: Chronic
[2017-12-23] MEDS: Piperacill/Tazo 3.375gm in Dex 3.375 GM/50 ML BAG IVPB SCH ×3 (03:00→14:07)
[2017-12-23 06:33] VITALS: O2SAT 97
[2017-12-23 08:20] VITALS: BP 152/84; PULSE 94; TEMP 98
[2017-12-23] MEDS: (Novolin R) Insulin Human Regular 100 units/ml vial SC SCH ×2 (08:44→12:17)
--- NOTE | 2017-12-23 08:46 | CP.PCM.PN ---
Subjective - Date & Time of Evaluation Date of Evaluation: 12/23/17 Time of Evaluation: 08:40 - Subjective Subjective: Podiatry Progress Note for Dr. Johnson: 57 yo male patient, seen and evaluated, at bedside 3 days s/p right partial hallux amputation. Patient is resting comfortably and in NAD. He states that he wants to go home soon and is aware that he must follow up in clinic on Monday with Dr. Johnson. He denies any pain to the right foot and denies any other pedal complaints at this time. He continues to ambulate in surgical shoe. Denies N/V/F/SOB/CP. Objective - Vital Signs/Intake and Output Vital Signs (last 24 hours): Temp Pulse Resp BP Pulse Ox 98 F 94 H 20 152/84 H 97 12/23/17 08:19 12/23/17 08:19 12/23/17 08:19 12/23/17 08:19 12/23/17 08:19 Intake and Output: 12/23/17 12/23/17 06:59 18:59 Intake Total 350 Balance 350 - Medications Medications: Current Medications Acetaminophen/Codeine Phosphate (Tylenol/Codeine 300 Mg/30 Mg) 1 ea PO Q6H PRN PRN Reason: Pain, Mild (1-3) Enoxaparin Sodium (Lovenox) 40 mg SC DAILY [facility] Last Admin: 12/22/17 09:33 Dose: 40 mg Hydralazine HCl (Apresoline) 50 mg PO Q8 [facility] Last Admin: 12/23/17 05:35 Dose: 50 mg Piperacillin Sod/Tazobactam Sod (Zosyn 3.375 Gm Iv Premix) 3.375 gm in 50 mls @ 100 mls/hr IVPB Q6H [facility] PRN Reason: Protocol Last Admin: 12/23/17 03:00 Dose: 100 mls/hr Insulin Human Regular (Novolin R) 0 unit SC ACHS [facility] PRN Reason: Protocol Last Admin: 12/22/17 21:20 Dose: Not Given Metformin HCl (Glucophage) 500 mg PO DAILY [facility] Last Admin: 12/22/17 09:33 Dose: 500 mg Metoprolol Succinate (Toprol Xl) 50 mg PO DAILY [facility] Last Admin: 12/22/17 09:33 Dose: 50 mg Oxycodone/Acetaminophen (Percocet 5/325 Mg Tab) 2 tab PO Q4H PRN PRN Reason: Pain, severe (8-10) Stop: 12/23/17 14:01 Oxycodone/Acetaminophen (Percocet 5/325 Mg Tab) 1 tab PO Q6H PRN PRN Reason: Pain, moderate (4-7) Stop: 12/23/17 14:16 Rosuvastatin Calcium (Crestor) 10 mg PO HS [facility] Last Admin: 12/22/17 21:18 Dose: 10 mg - Labs Labs: 12/21/17 06:57 12/21/17 06:57 PT 13.0 SECONDS (9.7-12.2) H 12/16/17 10:17 INR 1.2 12/16/17 10:17 APTT 38 SECONDS (21-34) H 12/16/17 10:17 - Constitutional Appears: Well, Non-toxic, No Acute Distress - Head Exam Head Exam: ATRAUMATIC, NORMOCEPHALIC - Extremities Exam Additional comments: RLE focused exam: Vasc: DP and PT 2/4, TG warm to warm, CFT <3 seconds to all digit on right X 4, unable to assess to the right hallux, non-pitting edema noted to the right hallux Ortho: no pain upon palpation to the right hallux Neuro: Gross and protective sensation diminished Derm: Surgical site is clean, dry. Sutures intact. Skin edges well coapted and well approximated. No drainage, no streaking, no erythema, no malodor, no clinical signs of infection. Linear superficial abrasion noted to hallux plantar sulcus, measuring approximately .1 cm x 1 cm x .1 cm. Wound base is granular. No drainage, no erythema, no clinical signs of infection. - Neurological Exam Neurological Exam: Alert, Awake, Oriented x3 Assessment and Plan - Assessment and Plan (Free Text) Assessment: 57 yo male 3 days s/p partial hallux amputation secondary to OM of distal hallux with ulceration and gangrenous changes Plan: Patient seen and evaluated with all questions and concerns addressed Plan discussed with attending Dr. Johnson Chart, labs, and vitals reviewed; Wound culture; Beta Hemolytic Strep Bone culture taken- pending Distal phalanx pathology- pending D/C on PO abx per ID reccs; Augmentin Surgical site dressed with betadine, xeroform, DSD, and Kerlix Patient stable from podiatry standpoint Patient to follow up in podiatry clinic Monday upon discharge Patient instructed to keep dressing clean, dry, and intact, and WBAT in surgical shoe
[2017-12-23] MEDS: Metoprolol Succinate 50 mg XL Tab PO SCH (09:31)
[2017-12-23] MEDS: Enoxaparin 40 mg Syringe SC SCH (09:31)
--- NOTE | 2017-12-23 12:39 | CP.PCM.PN ---
Subjective - Date & Time of Evaluation Date of Evaluation: 12/23/17 Time of Evaluation: 12:39 - Subjective Subjective: PATIENT WAS ADMITTED FOR UNCONTROL DM AND FOOT ULCER AAOX3 / DENIES PAIN / SOB / NO SIGN OF DISTRESS NOTED Objective - Vital Signs/Intake and Output Vital Signs (last 24 hours): Temp Pulse Resp BP Pulse Ox 98 F 94 H 20 152/84 H 97 12/23/17 08:19 12/23/17 08:19 12/23/17 08:19 12/23/17 08:19 12/23/17 08:19 Intake and Output: 12/23/17 12/23/17 06:59 18:59 Intake Total 350 Balance 350 - Medications Medications: Current Medications Acetaminophen/Codeine Phosphate (Tylenol/Codeine 300 Mg/30 Mg) 1 ea PO Q6H PRN PRN Reason: Pain, Mild (1-3) Enoxaparin Sodium (Lovenox) 40 mg SC DAILY [facility] Last Admin: 12/23/17 09:31 Dose: 40 mg Hydralazine HCl (Apresoline) 50 mg PO Q8 [facility] Last Admin: 12/23/17 05:35 Dose: 50 mg Piperacillin Sod/Tazobactam Sod (Zosyn 3.375 Gm Iv Premix) 3.375 gm in 50 mls @ 100 mls/hr IVPB Q6H [facility] PRN Reason: Protocol Last Admin: 12/23/17 09:31 Dose: 100 mls/hr Insulin Human Regular (Novolin R) 0 unit SC ACHS [facility] PRN Reason: Protocol Last Admin: 12/23/17 12:17 Dose: 4 units Metformin HCl (Glucophage) 500 mg PO DAILY [facility] Last Admin: 12/23/17 09:31 Dose: 500 mg Metoprolol Succinate (Toprol Xl) 50 mg PO DAILY [facility] Last Admin: 12/23/17 09:31 Dose: 50 mg Oxycodone/Acetaminophen (Percocet 5/325 Mg Tab) 2 tab PO Q4H PRN PRN Reason: Pain, severe (8-10) Stop: 12/23/17 14:01 Oxycodone/Acetaminophen (Percocet 5/325 Mg Tab) 1 tab PO Q6H PRN PRN Reason: Pain, moderate (4-7) Stop: 12/23/17 14:16 Rosuvastatin Calcium (Crestor) 10 mg PO HS [facility] Last Admin: 12/22/17 21:18 Dose: 10 mg - Labs Labs: 12/21/17 06:57 12/21/17 06:57 PT 13.0 SECONDS (9.7-12.2) H 12/16/17 10:17 INR 1.2 12/16/17 10:17 APTT 38 SECONDS (21-34) H 12/16/17 10:17 Assessment and Plan - Assessment and Plan (Free Text) Assessment: PATIENT SEEN EXAMINED AT THE BEDSIDE LUNG SOUND CLEAR RAJINDER / DRESSING DRY AND INTACT DISCUSS WITH MAGDIEL JONES FOR DC FOLLOW UP WITH DR VELOZ IN 1-2 WEEK AT HIS OFFICE ---CALL FOR APPOINTMENT FOLLOW UP WITH DR CARABALLO AT HIS OFFICE ON MONDAY NEXT WEEK ---CALL FOR APPOINTMENT CONTINUE HOME MEDICATION ORDER NEW PRESCRIPTION GIVEN AUGMENTIN PO Q12H FOR 7 DAYS PER ID HYDRALIZINE 50 MG PO Q8H METOPROLOL 50 MG PO DAILY [facility] 10 MG PO AT HS Surgical site dressed with betadine, xeroform, DSD, and Kerlix Patient stable from podiatry standpoint ACTIVITY TOLERATED AND HOME WITH SERVICE AND ROLLING WALKER CALL DR VELOZ OR GO TO THE EMERGENCY ROOM IF SYMPTOMS RETURN OR WORSENING DISCUSS WITH PATIENT WHO AGREE AND VERBALIZED UNDERSTANDING
--- NOTE | 2017-12-23 21:56 | CP.PCM.DIS ---
Provider - Provider Date of Admission: 12/16/17 13:06 Attending physician: Williams Berger MD Diagnosis - Discharge Diagnosis (1) Foot ulcer due to secondary DM Status: Acute (2) Hyperglycemia Status: Acute (3) Edema of foot Status: Acute (4) Hypertension Status: Acute (5) Charcot's arthropathy associated with type 2 diabetes mellitus Status: Chronic (6) Diabetes mellitus type 2 in nonobese Status: Chronic Hospital Course - Lab Results Lab Results: Micro Results 12/20/17 08:41 Bone Gram Stain - Final 12/20/17 08:41 Bone Tissue Culture - Preliminary NO GROWTH AFTER 48 HOURS 12/16/17 13:44 Blood Blood Culture - Final NO GROWTH AFTER 5 DAYS 12/16/17 13:44 Blood Gram Stain - Final TEST NOT PERFORMED 12/16/17 13:44 Blood Blood Culture - Final NO GROWTH AFTER 5 DAYS 12/16/17 13:44 Blood Gram Stain - Final TEST NOT PERFORMED 12/16/17 12:14 Toe Gram Stain - Final 12/16/17 12:14 Toe Wound Culture - Final Beta Hemolytic Strep Group B Most Recent Lab Values WBC 8.9 K/uL (4.8-10.8) 12/21/17 06:57 RBC 3.96 Mil/uL (4.40-5.90) L 12/21/17 06:57 Hgb 10.2 g/dL (12.0-18.0) L 12/21/17 06:57 Hct 30.1 % (35.0-51.0) L 12/21/17 06:57 MCV 75.9 fL (80.0-94.0) L 12/21/17 06:57 MCH 25.7 pg (27.0-31.0) L 12/21/17 06:57 MCHC 33.9 g/dL (33.0-37.0) 12/21/17 06:57 RDW 13.5 % (11.5-14.5) 12/21/17 06:57 Plt Count 421 K/uL (130-400) H 12/21/17 06:57 MPV 7.6 fL (7.2-11.7) 12/21/17 06:57 Neut % (Auto) 79.6 % (50.0-75.0) H 12/21/17 06:57 Lymph % (Auto) 9.7 % (20.0-40.0) L 12/21/17 06:57 Oldham % (Auto) 9.4 % (0.0-10.0) 12/21/17 06:57 Eos % (Auto) 0.8 % (0.0-4.0) 12/21/17 06:57 Baso % (Auto) 0.5 % (0.0-2.0) 12/21/17 06:57 Neut # (Auto) 7.1 K/uL (1.8-7.0) H 12/21/17 06:57 Lymph # (Auto) 0.9 K/uL (1.0-4.3) L 12/21/17 06:57 Oldham # (Auto) 0.8 K/uL (0.0-0.8) 12/21/17 06:57 Eos # (Auto) 0.1 K/uL (0.0-0.7) 12/21/17 06:57 Baso # (Auto) 0.0 K/uL (0.0-0.2) 12/21/17 06:57 Neutrophils % (Manual) 78 % (50-75) H 12/21/17 06:57 Lymphocytes % (Manual) 12 % (20-40) L 12/21/17 06:57 Monocytes % (Manual) 8 % (0-10) 12/21/17 06:57 Eosinophils % (Manual) 1 % (0-4) 12/21/17 06:57 Basophils % (Manual) 1 % (0-2) 12/21/17 06:57 Platelet Estimate Normal (NORMAL) 12/21/17 06:57 Large Platelets Present 12/21/17 06:57 ESR 130 mm/hr (0-15) H 12/18/17 07:18 PT 13.0 SECONDS (9.7-12.2) H 12/16/17 10:17 INR 1.2 12/16/17 10:17 APTT 38 SECONDS (21-34) H 12/16/17 10:17 Sodium 139 mmol/L (132-148) 12/21/17 06:57 Potassium 4.3 mmol/L (3.6-5.2) 12/21/17 06:57 Chloride 102 mmol/L (98-107) 12/21/17 06:57 Carbon Dioxide 28 mmol/L (22-30) 12/21/17 06:57 Anion Gap 13 (10-20) 12/21/17 06:57 BUN 18 mg/dL (9-20) 12/21/17 06:57 Creatinine 1.8 mg/dL (0.8-1.5) H 12/21/17 06:57 Est GFR ( Amer) 47 12/21/17 06:57 Est GFR (Non-Af Amer) 39 12/21/17 06:57 POC Glucose (mg/dL) 218 mg/dL (65-110) H 12/22/17 16:31 Random Glucose 199 mg/dL (75-110) H 12/21/17 06:57 Calcium 9.4 mg/dl (8.6-10.4) 12/21/17 06:57 Total Bilirubin 0.4 mg/dL (0.2-1.3) 12/16/17 10:17 AST 15 U/L (17-59) L 12/16/17 10:17 ALT 23 U/L (21-72) 12/16/17 10:17 Alkaline Phosphatase 132 U/L (38-126) H 12/16/17 10:17 C-Reactive Protein 135.00 mg/L (0.0-9.9) H 12/16/17 11:37 Total Protein 7.5 g/dL (6.3-8.3) 12/16/17 10:17 Albumin 3.6 g/dL (3.5-5.0) 12/16/17 10:17 Globulin 3.9 gm/dL (2.2-3.9) 12/16/17 10:17 Albumin/Globulin Ratio 0.9 (1.0-2.1) L 12/16/17 10:17 Urine Color Straw (YELLOW) 12/19/17 16:42 Urine Clarity Clear (Clear) 12/19/17 16:42 Urine pH 6.0 (5.0-8.0) 12/19/17 16:42 Ur Specific Blanchard 1.015 (1.003-1.030) 12/19/17 16:42 Urine Protein 2+ mg/dL (NEGATIVE) H 12/19/17 16:42 Urine Glucose (UA) 3+ mg/dL (Normal) H 12/19/17 16:42 Urine Ketones Negative mg/dL (NEGATIVE) 12/19/17 16:42 Urine Blood Negative (NEGATIVE) 12/19/17 16:42 Urine Nitrate Negative (NEGATIVE) 12/19/17 16:42 Urine Bilirubin Negative (NEGATIVE) 12/19/17 16:42 Urine Urobilinogen Normal mg/dL (0.2-1.0) 12/19/17 16:42 Ur Leukocyte Esterase Neg Cynthia/uL (Negative) 12/19/17 16:42 Urine WBC (Auto) 1 /hpf (0-5) 12/19/17 16:42 Urine RBC (Auto) < 1 /hpf (0-3) 12/19/17 16:42 Ur Squamous Epith Cells < 1 /hpf (0-5) 12/19/17 16:42 Urine Bacteria Rare (<OCC) 12/19/17 16:42 Vancomycin Trough 11.2 ug/mL (5.0-10.0) H 12/20/17 07:21 Discharge Exam - Head Exam Head Exam: ATRAUMATIC, NORMOCEPHALIC Discharge Plan - Discharge Medications Prescriptions: hydrALAZINE [Apresoline] 50 mg PO Q8 30 Days tab Amoxicillin/Clavulanate [Augmentin 500 MG-125 MG] 1 tab PO Q12H 7 Days tab Rosuvastatin Calcium [Crestor] 10 mg PO HS 30 Days tab Metoprolol Succinate XL [Toprol XL] 50 mg PO DAILY 30 Days tab - Follow Up Plan Condition: GOOD Disposition: HOME/ ROUTINE Instructions: Osteomyelitis (DC), Amoxicillin and Clavulanate, Hydralazine, Metoprolol, Rosuvastatin Additional Instructions: FOLLOW UP WITH DR BERGER IN 1-2 WEEK AT HIS OFFICE ---CALL FOR APPOINTMENT FOLLOW UP WITH DR CHAPA AT HIS OFFICE ON MONDAY NEXT WEEK ---CALL FOR APPOINTMENT CONTINUE HOME MEDICATION ORDER NEW PRESCRIPTION GIVEN AUGMENTIN PO Q12H FOR 7 DAYS PER ID HYDRALIZINE 50 MG PO Q8H METOPROLOL 50 MG PO DAILY CRESTOR 10 MG PO AT HS Surgical site dressed with betadine, xeroform, DSD, and Kerlix Patient stable from podiatry standpoint ACTIVITY TOLERATED AND HOME WITH SERVICE AND ROLLING WALKER CALL DR BERGER OR GO TO THE EMERGENCY ROOM IF SYMPTOMS RETURN OR WORSENING Referrals: Williams Berger MD [Staff Provider] - Callum Bates MD [Staff Provider] - Ag Chapa DPM [Staff Provider] -
--- NOTE | 2017-12-24 21:36 | DS ---
Copied To: Williams Berger MD Attending MD: Williams Berger MD ADMISSION DIAGNOSIS: Osteomyelitis of right foot. DISCHARGE DIAGNOSES: Osteomyelitis of right foot, chronic kidney disease, diabetes, hypertension. HISTORY OF PRESENT ILLNESS: This is 57-year-old Chinese male with a history of hypertension; CKD; hyperlipemia; type 2 diabetes; noncompliant with diet, medications, and followup. Admitted with right big toe ulcer, found to have osteomyelitis on the bone scan. The patient is being discharged on antibiotic, Augmentin. Condition upon discharge is stable. He underwent debridement of the wound. PHYSICAL EXAMINATION: VITAL SIGNS: Blood pressure 152/84, pulse 94, respiratory rate 20, and temperature 97. LUNGS: Clear. CARDIOVASCULAR SYSTEM: S1 and S2 regular. ABDOMEN: Soft. DISCHARGE: The patient is being discharged. CONDITION UPON DISCHARGE: Stable. Williams Berger MD
--- NOTE | 2017-12-25 06:44 | PN ---
Copied To: Williams Berger MD Attending MD: Williams Berger MD DATE: 12/22/2017 SUBJECTIVE: The patient is feeling better. He has right foot pain. No nausea or vomiting. PHYSICAL EXAMINATION: LUNGS: Clear. CVS: S1 and S2 regular. ABDOMEN: Soft. EXTREMITIES: Right foot hallux valgus deformity. ASSESSMENT: 1. Chronic kidney disease. 2. Right foot osteomyelitis. 3. Type 2 diabetes. 4. Hypertension. PLAN: Medical management. Monitor the patient. Williams Berger MD
--- NOTE | 2017-12-25 07:45 | OP ---
Copied To: Blanca Tovar Attending MD: Tyesha Johnson DPM PROCEDURE DATE: 12/20/2017 SURGEON: Tyesha Johnson DPM. ASSISTANTS: Blanca Tovar, PGY-1; Jacquelin Eddy, PGY-2. ANESTHESIOLOGIST: Dr. Esparza. ANESTHESIA: IV sedation with local anesthesia. PREOPERATIVE DIAGNOSIS: Right hallux osteomyelitis with gangrenous changes. POSTOPERATIVE DIAGNOSIS: Right hallux osteomyelitis with gangrenous changes. NAME OF PROCEDURE: Right partial hallux amputation. INDICATIONS: The patient is a 57-year-old male with the above diagnosis. The patient has exhausted all conservative treatment at this time and now requires surgical intervention. The patient signed the consent after careful explanation of the risks, benefits, complication, and alternatives for surgical procedure. No guarantees were given nor implied. N.p.o. status was confirmed prior to taking the patient to the OR. PREPARATION: The patient was brought into the operating room and placed on the operating room table in a supine position. Time-out was performed for identification of the correct patient and procedure. After induction of IV sedation, the patient received a total of 15 mL of 1% lidocaine plain and 0.25% Marcaine plain in a digital block fashion to the right first metatarsal. The right foot was then prepped and draped in normal sterile manner and the procedure began. No tourniquet was utilized during the procedure. PROCEDURE #1: Attention was drawn right hallux where a fish mouth type incision was made using a #15 blade distally to the level of the interphalangeal joint of the hallux. The incision was then extended down through the subcutaneous layer down to the level of bone extending into the interphalangeal joint. Using a bone clamp to stabilize the hallux, the distal phalanx was then disarticulated from the foot at the level of the APJ. Using a sagittal saw, the head of the proximal phalanx was . Wound culture from the head of the proximal phalanx were taken. Proximal phalanx and distal phalanx of the hallux were sent out to pathology using a #15 blade, all necrotic and nonviable tissue was then excisionally debrided from surgical site with additional soft tissue removed to allow for adequate skin enclosure without tension. The wound was then copiously flushed with Irrisept. The surgical site was then suture closed using 2-0 Prolene, using retention sutures initially and then support sutures leading those medial. The medial aspect of the incision was packed with Iodoform packing. The surgical site was then dressed with Betadine-soaked Adaptic, 4x4 gauze, Kerlix, and Regis to hold the dressing together without applying any compression. POSTOPERATIVE CONDITION: The patient tolerated the anesthesia and procedure well and was escorted to the recovery room, vital signs stable, and neurovascular status intact to the right foot. The patient is to weight bear as tolerated in a surgical shoe. The patient is to return to floor and Podiatry will continue to follow the patient. Upon discharge, the patient will follow up with Dr. Johnson in clinic. Blanca Tovar Tyesha Johnson DPM
--- NOTE | 2017-12-25 08:58 | CARD ---
APPROVED REPORT Date of service: 12/16/2017 EKG Measurement Heart [id number] <Conclusion> Normal sinus rhythm Left axis deviation Right bundle branch block Abnormal ECG
== END 2017-12-23 14:15 | disposition home health service (06) | DRG 617 ==
LOC: C.ER 08:56 → C.9E 13:06 → C.3T 17:59
PROVIDERS: ADMIT Internal Medicine; ATTEND Internal Medicine
PROC: 0Y6P0Z1 Detachment at Right 1st Toe, High, Open Approach (ICD-10-PCS; principal; 2017-12-20 12:00)
DX: E11.621 Type 2 diabetes mellitus with foot ulcer (principal); M86.171 Other acute osteomyelitis, right ankle and foot; E11.52 Type 2 diabetes mellitus with diabetic peripheral angiopathy with gangrene; I96 Gangrene, not elsewhere classified; E11.69 Type 2 diabetes mellitus with other specified complication; E11.22 Type 2 diabetes mellitus with diabetic chronic kidney disease; L97.519 Non-pressure chronic ulcer of other part of right foot with unspecified severity; E11.610 Type 2 diabetes mellitus with diabetic neuropathic arthropathy; N18.9 Chronic kidney disease, unspecified; I12.9 Hypertensive chronic kidney disease with stage 1 through stage 4 chronic kidney disease, or unspecified chronic kidney disease; D63.1 Anemia in chronic kidney disease; E11.65 Type 2 diabetes mellitus with hyperglycemia; E78.5 Hyperlipidemia, unspecified; Z79.4 Long term (current) use of insulin; Z91.11 Patient's noncompliance with dietary regimen